=== PATIENT | male | born 1945 | race Caucasian/White ===

== ENCOUNTER 2020-05-30 12:12 | Outpatient (CLI) | payer MEDICARE, SELFPAY ==
--- NOTE | 2020-06-04 13:24 | N.ONRAD NP_ITS ---
Radiation Oncology New Patient Visit Patient: Gwyn Sharif MR#: [id number] : 1945 Age: 74 Sex: Male> Account #: Dictated by: Dr. Vladislav Elise Date of Service: 05/30/2020 Referring Physician(s) : Dr. 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 The tumor was deeply invasive-beyond subcutaneous fat, and prior to Mohs surgery, the lesion measured 1.7 x 1.3 cm. Status post Mohs resection with ultimate negative margins. Purpose of Visit: Discuss the role of adjuvant radiotherapy. History of Present Illness: The patient is a 74-year-old male with a history of a lesion on his left upper lip of 2 years duration with recent rapid progression. This lesion was biopsied by Anna Tamez PA-C on 05/01/2020 with pathology confirming crateriform squamous cell carcinoma. Anna Tamez also biopsied a right superior lateral neck lesion which revealed nodular basal cell carcinoma. He was then evaluated by Dr. Curiel who noted a 1.3 x 1.7 cm lesion in the left superior vermilion lip. On 05/15/2020 the patient underwent definitive Mohs surgery by Dr. Curiel with negative postsurgical margins. The tumor was noted to invade deeply and beyond subcutaneous fat. The patient was then recommended to be consulted with radiation oncology due to the tumor???s high risk of recurrence. In consultation today, the patient reports no wound healing issues, no pain, and no numbness/tingling. Current Medications: AmLODIPine Besylate, benztropine Mesylate, haloperidol. Allergies: Penicillin V Potassium. Medical History: - Hypertension. No history of collagen vascular disease. No previous radiation therapy. Surgical History: Appendectomy in 1965. Family History: Father is having experienced Colon Cancer. Mother is . Brother is having experienced Colon Cancer. Brother is having experienced Lung Cancer. Social History: Last screened on 05/30/2020 - Yes - but has quit for 10 years. Smoked 1.0 pack/day for 45 years (45 pack years). Last screened on 05/30/2020 - Never drank. Current Complaints / Review of Systems: . A thorough review of symptoms was completed which targeted constitutional, heme/lymph, HEENT, RECEIVER, pulmonary, cardiac, genitourinary, gastrointestinal, musculoskeletal, psychiatric and skin. Aside from that listed in the HPI, all others were negative. Physical Exam: GENERAL:??? The patient is alert, and in no acute distress. HEENT:??? Head is normocephalic. Face is symmetric. A well-healed surgical scar is appreciated in the patient's left upper lip. The surgical scar extends from the left superior vermilion of the lip and lateral to the left nasal ala. External ocular movements are intact. Sclera and conjunctivae are non erythematous. NECK:??? Trachea is midline.??? Thyroid is not enlarged by palpation.??? LYMPH NODES:??? There is no cervical or supraclavicular adenopathy bilaterally. LUNGS:??? Clear to auscultation bilaterally. Respiratory movement is unlabored. HEART:??? Regular rate and rhythm. EXTREMITIES:??? No deformities. NEUROLOGIC:??? Gait and station are normal.??? The patient is well coordinated and strength is equal bilaterally. RECEIVER:??? Cranial nerves II-XII are intact and without focal deficits.??? Psych: Affect is normal. Skin: Cursory review of the skin reveals no obvious lesions concerning for malignancy. 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 The patient was treated with definitive Mohs surgery on 05/15/2020 with ultimate negative margins. Given the size, depth of invasion, and location, the tumor has a high risk of disease recurrence. Therefore it is recommended that the patient undergo adjuvant radiation therapy for a favorable local control benefit. I recommend a total dose of 60 Gy in 30 fractions. We discussed treatment logistics, treatment side effects, prognosis, and alternatives to treatment. We will begin radiation therapy planning on 06/06/2020. Signed by: Vladislav Elise MD 06/04/2020 1:23:03 PM <<Signature on File>> Time spent with patient: CPT Code: CPT Code:
== END 2020-05-30 12:13 | disposition home or self-care (01) ==
LOC: ONCMED 12:18
PROVIDERS: PCP Family Medicine; Visit Provider Radiology Radiation Oncology
DX: C00.0 Malignant neoplasm of external upper lip (principal); Z87.891 Personal history of nicotine dependence; Z98.890 Other specified postprocedural states
CPT/HCPCS: 99205

== ENCOUNTER 2020-06-13 05:37 | Outpatient (RCR) | payer MEDICARE, SELFPAY ==
--- NOTE | 2020-06-06 | CT_ITS ---
Radiation Therapy Planning CT images; total exam DLP: 1171.10 mGy-cm MTDD
== END 2020-06-13 23:59 | disposition home or self-care (01) ==
LOC: ONCMED 05:37
PROVIDERS: PCP Family Medicine; Visit Provider Radiology Radiation Oncology
DX: C44.02 Squamous cell carcinoma of skin of lip (principal)
CPT/HCPCS: 77290; 77321; 77331; 77334; 77412

== ENCOUNTER 2020-06-14 08:42 | Outpatient (CLI) | payer MEDICARE, SELFPAY ==
--- NOTE | 2020-06-14 09:02 | CT_ITS ---
WS: [id number] CT NECK TECHNIQUE: Contrast-enhanced CT of the neck with coronal and sagittal reformatted images. CLINICAL INFORMATION: SQUAMOUS CELL CARCINOMA OF THE LEFT SUPERIOR VERMILION LIP COMPARISON: None. DLP: 2864.[address] scans at [facility] use at least one of these dose optimization techniques: automat ed exposure control; mA and/or kV adjustment per patient size (includes targeted exams where dose is matched to clinical indication); or iterative reconstruction. FINDINGS: Images in the anterior facial soft tissues and tongue base degraded due to extensive beam hardening d ental artifact. Area of left lip squamous cell carcinoma not well visualized due to beam hardening ar tifact. Parotid glands are normal in appearance. Normal submandibular glands. No cervical lymphadenopathy. No rmal posterior nasopharynx. Normal parapharyngeal fat. No evidence of supraglottic or glottic mass. N ormal piriform sinuses. Normal subglottic airway. Thyroid gland is normal. Lung apices are well aerated. Mild carotid bulb calcification. Mild spondylitic changes cervical spin e.Paranasal sinuses and mastoid air cells are well aerated. Chronic lacunar infarct right basal gangl ia. CT/CT neck w con* 82188 IMPRESSION: 1. Images in the anterior facial soft tissues and tongue base significantly de graded due to beam hardening artifact from dental hardware. 2. No cervical lymphadenopathy. 3. No evidence of supraglottic or glottic mass. Normal subglottic airway. 4. Normal salivary glands. 5. Paranasal sinuses and mastoid air cells are well aerated. 6. Normal thyroid gland.
[2020-06-14 09:53] LABS: Blood Urea Nitrogen 10 mg/dL (8-23)
[2020-06-14] MEDS: iohexol 300 mg/mL 100 mL Btl IV (10:12)
== END 2020-06-14 08:43 | disposition home or self-care (01) ==
LOC: RADWPI 08:47 → ONCMED 10:19
PROVIDERS: PCP Family Medicine; Visit Provider Radiology Radiation Oncology
DX: C44.02 Squamous cell carcinoma of skin of lip (principal)
CPT/HCPCS: 70491; 82565; 84520; Q9967

== ENCOUNTER 2020-07-11 05:34 | Outpatient (RCR) | payer MEDICARE, SELFPAY ==
--- NOTE | 2020-06-21 08:18 | ONCRAD TMN_ITS ---
Radiation Oncology Weekly Treatment Management Patient: Gwyn Sharif MR#: [id number] : 1945 Age: 74 Sex: Male Dictated by: Dr. Vladislav Elise Date of Service: 06/19/2020 Referring Physician(s) : Dr. 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 The tumor was deeply invasive-beyond subcutaneous fat, and prior to Mohs surgery, the lesion measured 1.7 x 1.3 cm. Status post Mohs resection with ultimate negative margins. Treatment Plan: 60 Gy in 30 fractions via electron therapy and a custom 5 mm daily bolus. In order to reduce risks of treatment toxicity, the patient elected not to have his regional lymphatics treated at this time. Instead, we plan to treat the primary lesion plus an adequate margin followed by surveillance. Planned surveillance includes a CT of the head/neck soft tissues every 3 to 4 months for 1 year, then every 6 months for the second year, then annually through 5 years, or as clinically appropriate. Radiotherapy to date: Course: Lip E beam 2019, Treatment Site: [id number], Ref. ID: [id number], Energy: 6E, Dose/Fx (cGy): 200, #Fx: 5 / 30, Dose Correction (cGy): 0, Total Dose (cGy): 1,000, Start Date: 06/13/2020, Elapsed Days: 6 Reason for visit: The patient is being seen today as part of their regularly scheduled weekly on treatment visits to assess for acute toxicities from radiotherapy. Interim History: The patient reports no tenderness to his lip or oral cavity. He has no complaints. Current Medications: AmLODIPine Besylate, benztropine Mesylate, haloperidol. Allergies: Penicillin V Potassium. Vital Signs: Performed on 06/19/2020 2:29 PM BMI - 23.58 kg/m2 (high), Height - 69.50 in, Weight - 162.0 lbs, Temperature - 98.1 f, Pulse - 88, Respiration - 20, O2 Sat - 98 %, Pain - 0 and BP - 118/ 82 mm(hg). Physical Exam: Appears stable, no skin erythema or desquamation. There are no ulcers or mucositis in the patient's oral cavity. Performance Status: 0 - Fully active, able to carry on all predisease activities without restrictions. (ECOG) Lab: None pending in Radiation Oncology. Imaging: Radiation therapy imaging related to accurate target localization (i.e. KV, MV and CBCT) was reviewed. Appropriate changes, if any, were made to ensure treatment accuracy. Plan: The patient is tolerating therapy reasonably well. Radiotherapy will continue as planned. CPT: 36563 Signed by: Dr. Vladislav Elise 06/21/2020 8:16:38 AM
--- NOTE | 2020-06-26 16:56 | ONCRAD TMN_ITS ---
Radiation Oncology Weekly Treatment Management Patient: Kole Pascal MR#: [id number] : 1945 Age: 74 Sex: Male Dictated by: Dr. Vladislav Elise Date of Service: 06/26/2020 Referring Physician(s) : Dr. 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 The tumor was deeply invasive-beyond subcutaneous fat, and prior to Mohs surgery, the lesion measured 1.7 x 1.3 cm. Status post Mohs resection with ultimate negative margins. Treatment Plan: 60 Gy in 30 fractions via electron therapy and a custom 5 mm daily bolus. In order to reduce risks of treatment toxicity, the patient elected not to have his regional lymphatics treated at this time. Instead, we plan to treat the primary lesion plus an adequate margin followed by surveillance. Since the regional lymphatics were excluded from primary adjuvant treatment, planned surveillance includes a CT of the head/neck soft tissues every 3 to 4 months for 1 year, then every 6 months for the second year, then annually through 5 years, or as clinically appropriate. In the event that tumor recurrence occurs, this aggressive follow up will assist in developing an early salvage plan. Radiotherapy to date: Course: Lip E beam 2019, Treatment Site: [id number], Ref. ID: [id number], Energy: 6E, Dose/Fx (cGy): 200, #Fx: , Dose Correction (cGy): 0, Total Dose (cGy): 2,000, Start Date: 06/13/2020, End Date: 06/26/2020, Elapsed Days: 13 Reason for visit: The patient is being seen today as part of their regularly scheduled weekly on treatment visits to assess for acute toxicities from radiotherapy. Interim History: The patient reports mild irritation on his upper left lip, and mild desquamation in the left oral commissure. Current Medications: AmLODIPine Besylate, benztropine Mesylate, haloperidol. Allergies: Penicillin V Potassium. Current Complaints/Review of Systems: Constitutional - Complains of fatigue. Denies lack of appetite, fever and night sweats. ENMT - Complains of dysphagia and stomatitis but has cracks at the corners of the mouth.. Denies mouth dryness. Integumentary - Has redness to the left upper lip. Vital Signs: Performed on 06/26/2020 9:27 AM BMI - 23.726 kg/m2 (high), Height - 69.50 in, Weight - 163.0 lbs, Temperature - 97.6 f, Pulse - 84, Respiration - 20, O2 Sat - 97 %, Pain - 0 and BP - 137/ 96 mm(hg)(/high). Physical Exam: Erythema within the treatment site is appreciated. Mild dry desquamation is appreciated in the left oral commissure. Performance Status: 0 - Fully active, able to carry on all predisease activities without restrictions. (ECOG) Lab: None pending in Radiation Oncology. Imaging: Radiation therapy imaging related to accurate target localization (i.e. KV, MV and CBCT) was reviewed. Appropriate changes, if any, were made to ensure treatment accuracy. Plan: The patient is tolerating therapy reasonably well. Radiotherapy will continue as planned. CPT: 90302 Signed by: Dr. Vladislav Elise 06/26/2020 4:54:03 PM
--- NOTE | 2020-07-03 17:37 | ONCRAD TMN_ITS ---
Radiation Oncology Weekly Treatment Management Patient: Kole Pascal MR#: [id number] : 1945 Age: 74 Sex: Male Dictated by: Dr. Vladislav Elise Date of Service: 07/03/2020 Referring Physician(s) : Dr. 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 The tumor was deeply invasive-beyond subcutaneous fat, and prior to Mohs surgery, the lesion measured 1.7 x 1.3 cm. Status post Mohs resection with ultimate negative margins. Treatment Plan: 60 Gy in 30 fractions via electron therapy and a custom 5 mm daily bolus. In order to reduce risks of treatment toxicity, the patient elected not to have his regional lymphatics treated at this time. Instead, we plan to treat the primary lesion plus an adequate margin followed by surveillance. Since the regional lymphatics were purposefully excluded from primary adjuvant treatment, planned surveillance includes a CT of the head/neck soft tissues every 3 to 4 months for 1 year, then every 6 months for the second year, then annually through 5 years, or as clinically appropriate. In the event that tumor recurrence occurs, this aggressive follow up will assist in developing an early salvage plan. Radiotherapy to date: Course: Lip E beam 2019, Treatment Site: [id number], Ref. ID: [id number], Energy: 6E, Dose/Fx (cGy): 200, #Fx: 15 / 30, Dose Correction (cGy): 0, Total Dose (cGy): 3,000, Start Date: 06/13/2020, Elapsed Days: 20 Reason for visit: The patient is being seen today as part of their regularly scheduled weekly on treatment visits to assess for acute toxicities from radiotherapy. Interim History: The patient reports skin irritation within the treatment area, and oral mouth sores. Current Medications: AmLODIPine Besylate, benztropine Mesylate, haloperidol. Allergies: Penicillin V Potassium. Vital Signs: Performed on 07/03/2020 8:54 AM BMI - 23.872 kg/m2 (high), Height - 69.50 in, Weight - 164.0 lbs, Temperature - 98.7 f, Pulse - 71, Respiration - 18, O2 Sat - 97 %, Pain - 0 and BP - 143/ 92 mm(hg)(high). Physical Exam: Bright skin erythema is appreciated within the treatment field, and confluent mucositis under the superior left lip is also appreciated. Performance Status: 0 - Fully active, able to carry on all predisease activities without restrictions. (ECOG) Lab: None pending in Radiation Oncology. Imaging: Radiation therapy imaging related to accurate target localization (i.e. KV, MV and CBCT) was reviewed. Appropriate changes, if any, were made to ensure treatment accuracy. Plan: The patient is tolerating therapy reasonably well. Radiotherapy will continue as planned. I have requested physics to do skin dose measurements on top of the superior left lip and underneath the superior left lip tomorrow morning. CPT: 96645 Signed by: Dr. Vladislav Elise 07/03/2020 5:36:12 PM
--- NOTE | 2020-07-11 19:04 | ONCRAD TMN_ITS ---
Radiation Oncology Weekly Treatment Management/Treatment Summary Patient: Gwyn Sharif MR#: [id number] : 1945 Age: 74 Sex: Male Dictated by: Dr. Vladislav Elise Date of Service: 07/10/2020 Referring Physician(s) : Dr. 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 The tumor was deeply invasive-beyond subcutaneous fat, and prior to Mohs surgery, the lesion measured 1.7 x 1.3 cm. Status post Mohs resection with ultimate negative margins. Treatment Plan: 60 Gy in 30 fractions via electron therapy and a custom 5 mm daily bolus. In order to reduce risks of treatment toxicity, the patient elected not to have his regional lymphatics treated at this time. Instead, we plan to treat the primary lesion plus an adequate margin followed by surveillance. Since the regional lymphatics were purposefully excluded from primary adjuvant treatment, planned surveillance includes a CT of the head/neck soft tissues every 3 to 4 months for 1 year, then every 6 months for the second year, then annually through 5 years, or as clinically appropriate. In the event that tumor recurrence occurs, this aggressive follow up will assist in developing an early salvage plan. Radiotherapy to date: Course: Lip E beam 2019, Treatment Site: [id number], Ref. ID: [id number], Energy: 6E, Dose/Fx (cGy): 200, #Fx: 20 / 30, Dose Correction (cGy): 0, Total Dose (cGy): 4,000, Start Date: 06/13/2020, End Date: 07/10/20, Elapsed Days: 27 Reason for visit: The patient is being seen today as part of their regularly scheduled weekly on treatment visits to assess for acute toxicities from radiotherapy. Interim History: The patient has significant pain associated with his lip. Current Medications: AmLODIPine Besylate, benztropine Mesylate, haloperidol, lidocaine Viscous HCl. Allergies: Penicillin V Potassium. Current Complaints/Review of Systems: Constitutional - Complains of moderate fatigue. Denies lack of appetite, fever and night sweats. ENMT - Complains of stomatitis. Denies dysphagia. Integumentary - Has desquamation to the left upper lip. Vital Signs: Performed on 07/10/2020 9:38 AM BMI - 24.134 kg/m2 (high), Height - 69.50 in, Weight - 165.8 lbs, Temperature - 98.3 f, Pulse - 85, Respiration - 18, O2 Sat - 96 %, Pain - 8 and BP - 130/ 95 mm(hg)(/high). Physical Exam: The patient has significant erythema, desquamation, and ulceration on the underside of his left upper lip. Performance Status: 0 - Fully active, able to carry on all predisease activities without restrictions. (ECOG) Lab: None pending in Radiation Oncology. Imaging: Radiation therapy imaging related to accurate target localization (i.e. KV, MV and CBCT) was reviewed. Appropriate changes, if any, were made to ensure treatment accuracy. Plan: Radiation therapy was discontinued today. I suspect that this patient's treatment toxicities are associated with back scatter associated with lead shielding to protect his oral cavity and associated poor dentition. During the course of radiation therapy, the lead shielding encased in wax was removed and a 1 cm bolus was placed underneath the lip instead. After physics consultation, physics reported that a dose of approximately 60 Gy was delivered to the underside of the lip, whereas the top side of the lip received approximately 40 Gy. It was decided to discontinue radiation treatment, attend to the patient's acute toxicities, administer pain medication, and begin previously planned surveillance. CPT: 89407 Signed by: Dr. Vladislav Elise 07/11/2020 7:02:55 PM
== END 2020-07-14 23:59 | disposition home or self-care (01) ==
LOC: ONCMED 05:34
PROVIDERS: PCP Family Medicine; Visit Provider Radiology Radiation Oncology
DX: Z51.0 Encounter for antineoplastic radiation therapy (principal); C44.02 Squamous cell carcinoma of skin of lip; K13.79 Other lesions of oral mucosa; L58.0 Acute radiodermatitis; Y84.2 Radiological procedure and radiotherapy as the cause of abnormal reaction of the patient, or of later complication, without mention of misadventure at the time of the procedure
CPT/HCPCS: 77336; 77412

== ENCOUNTER → 2020-08-07 15:11 | Outpatient (BNVA) | payer MEDICARE, SELFPAY | PROVIDERS: PCP Family Medicine; Referring Provider Family Medicine; Visit Provider Orthopaedic Surgery | DX: M17.0 Bilateral primary osteoarthritis of knee (principal); M25.562 Pain in left knee; M25.561 Pain in right knee | CPT/HCPCS: 73560; 73565 ==

== ENCOUNTER → 2020-09-19 09:12 | Outpatient (BNVA) | payer MEDICARE, SELFPAY | PROVIDERS: PCP Family Medicine; Visit Provider Orthopaedic Surgery | DX: M17.0 Bilateral primary osteoarthritis of knee (principal) | CPT/HCPCS: 87635 ==

== ENCOUNTER → 2020-09-24 11:37 | Day surgery (SDC) | payer MEDICARE, SELFPAY ==
[2020-09-10 10:56] VITALS: BMI 24.3
--- NOTE | 2020-09-24 11:46 | W.PM.OPSFHP ---
Same Day Surgery H&P Indication for Procedure/HPI DATE OF PROCEDURE: September 24, 2020 CHIEF COMPLAINT/INDICATIONFOR SURGICAL PROCEDURE: 75-year-old male with osteoarthritis of both knees more symptomatic on the right. He has failed medications: Ibuprofen, Ultram and failed corticosteroid injections. He has significant pain is here for elective right total knee arthroplasty PREOP DIAGNOSIS: Osteoarthritis right knee PLANNED PROCEDRUE: Operation Date: 09/24/20 12:10 Proposed Procedures p Right Total Knee Arthroplasty 64245 M17.0(Right) - Clifford Zamudio MD Medications/Allergies* Home Medications Medication Instructions Recorded Confirmed Type amlodipine 5 mg tablet 5 mg PO DAILY 08/07/20 09/10/20 History haloperidol 2 mg tablet 2 mg PO DAILY 08/07/20 09/10/20 History tramadol 50 mg tablet 50 mg PO TID PRN 08/07/20 09/10/20 History benztropine [Cogentin] 2 mg PO DAILY 09/10/20 09/10/20 History Allergies/Adverse Reactions Allergy/AdvReac Type Severity Reaction Status Date / Time Penicillins Allergy Unknown Verified 09/10/20 10:51 Pertinent History/Comorbid Conditions* Family History (Updated 08/07/20 @ 15:29 by Serena Jones LPN) Father Mother Cancer Father stomach Hypertension Mother Social History Smoking and tobacco status: former smoker Quit status (tobacco): has quit using tobacco Alcohol intake: former Desire information about alcohol rehabilitation?: No Counseling given: No Pertinent Exam Findings alert, oriented x 3, clear to auscultation bilaterally, regular rate & rhythm and operative site marked Recommendations Surgery/Procedure today Coding Level of Care Code Acute 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
[2020-09-24 11:50] VITALS: BP 141/101; PULSE 126; RESP 20; TEMP 36.4; O2SAT 97
--- NOTE | 2020-09-24 11:50 | ECG_ITS ---
[facility] Test Date: 2020-09-24 Pat Name: Gwyn Sharif Department: Room: Gender: Male Student Services Coordinator: : 1945 Requested By: Hira Cárdenas Order Number: [id number] Ashvin MD: Rosetta Montesinos M.D. Measurements Intervals [place] Rate: 106 P: IN: QRS: 28 QRSD: 80 T: 46 QT: 328 QTc: 437 Interpretive Statements ATRIAL FIBRILLATION WITH RAPID VENTRICULAR RESPONSE ABNORMAL RHYTHM ECG WARNING: DATA QUALITY MAY AFFECT INTERPRETATION No previous ECG available for comparison Electronically Signed On 09-24-2020 17:30:25 CHEMICAL ECONOMIST by Rosetta Montesinos M.D. [id number]
--- NOTE | 2020-09-24 12:41 | P.ANESUD_ITS ---
Pre-Anesthetic Update Pre-Anesthetic Assessment: Date of Surgery/Procedure: 09/24/20 Preop Arminda gnosis: Osteoarthritis right knee Proposed Procedure: Operation Date: 09/24/20 12:10 Proposed Procedures p Right Total Knee Arthroplasty 37486 M17.0(Right) - Clifford Zamudio MD Any changes to Pre-Anesthetic Assessment?: Yes Exam: Pre-Anes Outpt Exam: alert, oriented x 3 and clear to auscultation bilaterally Additional Exam Findings (including area of procedure): New onset a.fib (HR 106), surgeon cancelled case for further evaluation. Cardiac Studies: No Data to Display
--- NOTE | 2020-09-24 13:16 | PC.NURSE ---
[id number] Pt arrived for surgery, vital signs taken, and assessment done. B/P 141/101, HR 126, and HR irregular. Pt states that he only has high blood pressure, and had not been diagnosed with A-fib before. EKG ordered and Dr Treviño, and Dr Zamudio notified. After discussion and deliberation, surgery was cancelled. Appointment made with Dr Leonor Courtney (pts , Dr Ga did not have an opening) for tomorrow at 1100. Pt to have a cardiac workup and then reschedule surgery.
== END ==
PROVIDERS: PCP Family Medicine; Visit Provider Orthopaedic Surgery
DX: M17.0 Bilateral primary osteoarthritis of knee (principal); Z53.9 Procedure and treatment not carried out, unspecified reason; Z87.891 Personal history of nicotine dependence
CPT/HCPCS: 12345; 93005

== ENCOUNTER 2020-10-19 07:48 | Outpatient (CLI) | payer MEDICARE, SELFPAY ==
--- NOTE | 2020-10-19 08:29 | ONCRAD EPV_ITS ---
Radiation Oncology Follow-Up Note Patient Name: Gwyn Sharif Date of : 1945 Date of Service: 10/19/2020 Attending Physician: River Elizabeth M.D. Gwyn Sharif returned to my office this morning for a routinely scheduled follow-up appointment. He completed post-operative radiotherapy in June 2020 for the management of his clinical stage III (T3 N0) squamous cell carcinoma of the left superior vermilion border of the lip. Radiotherapy was administered between the dates of June 13, 2020 through July 10, 2020. A prescribed dose of 40 Gy was delivered in 20 fractions. Radiation therapy was aborted secondary to dermatitis. On review of systems, the patient denied any skin complaints related to his treatment. On physical examination, slight hypopigmentation of the lip was present I did not palpate any cervical adenopathy.. In summary, the patient returned for a routine post-radiotherapy follow-up. The patient has no residual adverse effects from treatment. He will continue follow-up with his rod pointer as scheduled. Signed by: Dr. River Elizabeth 10/19/2020 8:28:08 AM
== END 2020-10-19 07:49 | disposition home or self-care (01) ==
LOC: ONCMED 07:51
PROVIDERS: PCP Family Medicine; Visit Provider Radiology Radiation Oncology
DX: C44.02 Squamous cell carcinoma of skin of lip (principal); Z92.3 Personal history of irradiation
CPT/HCPCS: 99213

== ENCOUNTER 2020-11-06 09:31 | Outpatient (CLI) | payer MEDICARE, SELFPAY ==
--- NOTE | 2020-11-06 09:45 | USCV_ITS ---
Gwyn Sharif Age: 75 Gender: M : 1945 Exam Date: 11/06/2020 09:54 Ordering Phys: Abdiaziz Martin MD ([email or web address]) Technologist: Elyssa Aden [place] [facility] [place] CHEST PAIN WITH AFIB BP: / HR: 81 Rhythm: Sinus Technical Quality: AFIB MEASUREMENTS (Male / Female) Normal Values 2D ECHO LV Diastolic Diameter PLAX 3.8 cm 4.2 - 5.9 / 3.9 - 5.3 cm LV Systolic Diameter PLAX 3.0 cm LV Chamber Size 4.1 cm IVS Diastolic Thickness 1.3 cm 0.6 - 1.0 / 0.6 - 0.9 cm IVS Systolic Thickness 1.4 cm LVPW Diastolic Thickness 1.6 cm 0.6 - 1.0 / 0.6 - 0.9 cm LVPW Systolic Thickness 1.3 cm RV Chamber Size 3.0 cm LVOT Diameter 2.0 cm LV Ejection Fraction 2D Teich 42.3 % LV Ejection Fraction MOD 2C 58.8 % LV Ejection Fraction 2C AL 55.6 % LA Diameter 3.9 cm LA Width 3.5 cm LA Height 4.5 cm RA Width 2.5 cm RA Height 3.7 cm Aorta at Sinotubular Diameter 3.1 cm M-MODE LV Diastolic Diameter MM 5.3 cm 4.2 - 5.9 / 3.9 - 5.3 cm LV Systolic Diameter MM 4.4 cm LV Ejection Fraction MM Teich 34.6 % IVS Diastolic Thickness MM 1.1 cm 0.6 - 1.0 / 0.6 - 0.9 cm IVS Systolic Thickness MM 1.3 cm LVPW Diastolic Thickness MM 1.2 cm 0.6 - 1.0 / 0.6 - 0.9 cm LVPW Systolic Thickness MM 1.9 cm RV Diastolic Diameter MM 1.9 cm Aortic Annulus Diameter 3.4 cm LA Ao Ratio MM 1.4 DOPPLER AV Peak Velocity 90.0 cm/s LVOT Peak Velocity 54.0 cm/s AV Area Cont Eq vti 2.2 cm squared AV Area Cont Eq pk 2.0 cm squared MV Area PHT 4.0 cm squared MV E' Velocity 40.0 cm/s Mitral E to MV E' Ratio 5.0 Mitral E to LV E' Lateral Ratio 4.5 Mitral E to LV E' Septal Ratio 5.5 TR Peak Velocity 229.9 cm/s TR Peak Gradient 21.1 mmHg TR Mean Velocity 174.3 cm/s TR Mean Gradient 13.6 mmHg TR Velocity Time Integral 57.5 cm TV Peak E Velocity 63.0 cm/s Right Atrial Pressure 3.0 mmHg Pulmonary Artery Systolic Pressu 24.1 mmHg PV Peak Velocity 44.0 cm/s RV Acceleration Time 0.2 s RV Ejection Time 0.3 s RV AcT/ET 0.5 FINDINGS Left Ventricle Normal left ventricular size and systolic function, EF 45 to 50%. Mild diffuse hypokinesia left ventricle.mild left ventricular hypertrophy. Right Ventricle Normal right ventricular size and systolic function. Right Atrium Mildly increased right atrial size. Left Atrium Mildly increased left atrial size. Mitral Valve Thickened mitral valve. Moderate-severe mitral valve regurgitation. Aortic Valve Thickened aortic valve. Tricuspid Valve Mild tricuspid valve regurgitation. Pulmonic Valve Pulmonic valve not well visualized. Pericardium No pericardial effusion. Aorta Normal aortic annulus size. CONCLUSIONS Normal left ventricular size and systolic function, EF 45 to 50%. Mild diffuse hypokinesia left ventricle.mild left ventricular hypertrophy. Mild biatrial enlargement. Thickened aortic and mitral valves. Moderate-severe mitral valve regurgitation. Mild tricuspid valve regurgitation. There is no pericardial effusion. There are no intracardiac masses. No previous study is available for comparison. Dr Abdiaziz Martin MD [facility] (Electronically Signed) Final Date: 06 November 2020 18:48 S
[2020-11-07 08:34] VITALS: BMI 23.6
--- NOTE | 2020-11-07 08:35 | ECG_ITS ---
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 Interpretive Statements NAME OF STUDY: LEXISCAN SESTAMIBI STRESS TEST INDICATION: Sob, PROCEDURE: At the baseline, the EKG revealed atrial fibrillation with controlled ventricular response rate of [address]-T changes. The baseline blood pressure was 140/102 mm Hg with a heart rate of 98 beats/min. Lexiscan was infused over a period of 20 seconds. A total of 0.4 milligrams of Lexiscan was infused. The stress phase was continued for a total of 5 minutes. Heart rate at the end of the stress phase was 103 with a blood pressure 120/84. The EKG at the peak infusion revealed no significant changes. Sestamibi was injected 20 seconds after the Lexiscan infusion. Blood pressure at the end of the recovery phase was 122/85 with a heart rate of 102 per minute. CONCLUSION: 1. No significant EKG changes with the LexiScan infusion 2. No LexiScan induced chest pain or cardiac arrhythmia 3. Normal blood pressure and heart rate response 4. Sestamibi/sestamibi perfusion scan pending; see separate report. Electronically Signed On 11-08-2020 10:16:03 CIRCLE BEVELER by Abdiaziz Martin M.D. [id number]
--- NOTE | 2020-11-07 08:35 | NMCV_ITS ---
NM mary perf SPECT r/s* [id number] Gwyn Sharif Age: 75 Gender: M : 1945 Exam Date: 11/07/2020 08:35 Ordering Phys: Abdiaziz Martin MD ([email or web address]) Technologist: JAQUAN Wilhelm Exam Location: [facility] Indications: SOB STRESS TEST Please see separate stress test report in [facility] for full findings IMAGE PROTOCOL Rest/Stress 1 Lexiscan Day Radiopharmaceutical Dose (mCi) Administration Site Administered by Rest: Tc-99m 10.7 IV JAQUAN Wilhelm Sestamibi Stress:Tc-99m 32.3 IV JAQUAN Ray Sestamibi Rest: 07-Nov-2020 60 Discovery 630 Stress: 07-Nov-2020 30 Discovery 630 0.4mg Lexiscan. Images obtained in supine and prone position. SPECT RESULTS Technical Quality: Excellent Raw Data Analysis: Normal Image Corrections: No attenuation or motion correction applied Summed Stress Score: 0 Summed Rest Score: 0 Summed Difference Score: 0 PERFUSION FINDINGS Small area of slightly decreases uptake in the inferolateral region, with no significant reversibility. FUNCTIONAL RESULTS (calculated via Gated SPECT) Stress Image LV EF (%): 57 Stress EDV (mL):110 TID: 1.18 Stress ESV (mL):47 FUNCTIONAL FINDINGS: Segmental wall motion analysis revealing no gross wall motion abnormalities. IMPRESSIONS 1. Myocardial perfusion may revealing a small area of slightly decreased persistent tracer uptake in the inferolateral wall region, suggestive of myocardial scarring versus attenuation artifact. 2. Normal LV ejection fraction 57%. 3. LV wall motion analysis revealing no gross wall motion normalities. 4. Mildly dilated LV cavity with an end-systolic volume of 47 mL The slightly elevated transient ischemic dilatation ratio, may suggest endocardial ischemia. However the positive predictive value of this finding is limited. Clinical correlation is recommended Dr Abdiaziz Martin MD [facility] (Electronically Signed) Final Date: 07 November 2020 14:24 S
[2020-11-07] MEDS: regadenoson 0.4 Mg/5 ml Syringe IVP (10:10)
[2020-11-07 10:22] VITALS: BP 122/85; PULSE 96
== END 2020-11-06 09:32 | disposition home or self-care (01) ==
PROVIDERS: PCP Family Medicine; Visit Provider Internal Medicine Cardiovascular Disease
DX: I48.91 Unspecified atrial fibrillation (principal); R06.02 Shortness of breath; R07.89 Other chest pain; I08.3 Combined rheumatic disorders of mitral, aortic and tricuspid valves
CPT/HCPCS: 93306

== ENCOUNTER 2020-11-07 10:48 | Outpatient (CLI) | payer MEDICARE, SELFPAY ==
--- NOTE | 2020-11-07 | NMCV_ITS ---
NM mary perf SPECT r/s* [id number] Gwyn Sharif Age: 75 Gender: M : 1945 Exam Date: 11/07/2020 08:35 Ordering Phys: Abdiaziz Martin MD Technologist: JAQUAN Wilhelm Exam Location: [facility] Indications: SOB STRESS TEST Please see separate stress test report in [facility] for full findings IMAGE PROTOCOL Rest/Stress 1 Lexiscan Day Radiopharmaceutical Dose (mCi) Administration Site Administered by Rest: Tc-99m 10.7 IV JAQUAN Wilhelm Sestamibi Stress:Tc-99m 32.3 IV JAQUAN Ray Sestamibi Rest: 07-Nov-2020 60 Discovery 630 Stress: 07-Nov-2020 30 Discovery 630 0.4mg Lexiscan. Images obtained in supine and prone position. SPECT RESULTS Technical Quality: Excellent Raw Data Analysis: Normal Image Corrections: No attenuation or motion correction applied Summed Stress Score: 0 Summed Rest Score: 0 Summed Difference Score: 0 PERFUSION FINDINGS Small area of slightly decreases uptake in the inferolateral region, with no significant reversibility. FUNCTIONAL RESULTS (calculated via Gated SPECT) Stress Image LV EF (%): 57 Stress EDV (mL):110 TID: 1.18 Stress ESV (mL):47 FUNCTIONAL FINDINGS: Segmental wall motion analysis revealing no gross wall motion abnormalities. IMPRESSIONS 1. Myocardial perfusion may revealing a small area of slightly decreased persistent tracer uptake in the inferolateral wall region, suggestive of myocardial scarring versus attenuation artifact. 2. Normal LV ejection fraction 57%. 3. LV wall motion analysis revealing no gross wall motion normalities. 4. Mildly dilated LV cavity with an end-systolic volume of 47 mL The slightly elevated transient ischemic dilatation ratio, may suggest endocardial ischemia. However the positive predictive value of this finding is limited. Clinical correlation is recommended Dr Abdiaziz Martin MD [facility] (Electronically Signed) Final Date: 07 November 2020 14:24 C MTDD
--- NOTE | 2020-11-07 | NMCV_ITS ---
NM mary perf SPECT r/s* [id number] Gwyn Sharif Age: 75 Gender: M : 1945 Exam Date: 11/07/2020 08:35 Ordering Phys: Abdiaziz Martin MD Technologist: JAQUAN Wilhelm Exam Location: [facility] Indications: SOB STRESS TEST Please see separate stress test report in [facility] for full findings IMAGE PROTOCOL Rest/Stress 1 Lexiscan Day Radiopharmaceutical Dose (mCi) Administration Site Administered by Rest: Tc-99m 10.7 IV JAQUAN Wilhelm Sestamibi Stress:Tc-99m 32.3 IV JAQUAN Ray Sestamibi Rest: 07-Nov-2020 60 Discovery 630 Stress: 07-Nov-2020 30 Discovery 630 0.4mg Lexiscan. Images obtained in supine and prone position. SPECT RESULTS Technical Quality: Uninterpretable Raw Data Analysis: Normal Image Corrections: No attenuation or motion correction applied Summed Stress Score: 0 Summed Rest Score: 0 Summed Difference Score: 0 PERFUSION FINDINGS Small area of slightly decreases uptake in the inferolateral region, with no significant reversibility. FUNCTIONAL RESULTS (calculated via Gated SPECT) Stress Image LV EF (%): 57 Stress EDV (mL):110 TID: 1.18 Stress ESV (mL):47 FUNCTIONAL FINDINGS: Segmental wall motion analysis revealing no gross wall motion abnormalities. IMPRESSIONS 1. Myocardial perfusion may revealing a small area of slightly decreased persistent tracer uptake in the inferolateral wall region, suggestive of myocardial scarring versus attenuation artifact. 2. Normal LV ejection fraction 57%. 3. LV wall motion analysis revealing no gross wall motion normalities. 4. Mildly dilated LV cavity with an end-systolic volume of 47 mL The slightly elevated transient ischemic dilatation ratio, may suggest endocardial ischemia. However the positive predictive value of this finding is limited. Clinical correlation is recommended Dr Abdiaziz Martin MD [facility] (Electronically Signed) Final Date: 07 November 2020 14:24 MTDD
== END 2020-11-07 10:49 | disposition home or self-care (01) ==
LOC: CDL 11-08 10:49
PROVIDERS: PCP Family Medicine; Visit Provider Internal Medicine Cardiovascular Disease
DX: R06.02 Shortness of breath (principal); I48.91 Unspecified atrial fibrillation
CPT/HCPCS: 78452; A9500; J2785

== ENCOUNTER → 2020-11-14 14:29 | Outpatient (BNVA) | payer MEDICARE, SELFPAY | PROVIDERS: PCP Family Medicine; Visit Provider Orthopaedic Surgery | DX: Z01.812 Encounter for preprocedural laboratory examination (principal); Z20.822 Contact with and (suspected) exposure to COVID-19 | CPT/HCPCS: 87635 ==

== ENCOUNTER 2020-11-19 12:24 | Observation (INO) | payer MEDICARE, SELFPAY ==
[2020-11-14 13:10] VITALS: BMI 23.6
--- NOTE | 2020-11-14 13:31 | ANES.PREANE2 ---
Pre-Anesthetic Assessment Pre-Anesthetic Assessment: Height/Weight: Height 1.78 m Weight 74.843 kg Preop Diagnosis: Osteoarthritis right knee Proposed Procedure: Operation Date: 11/19/20 12:35 Proposed Procedures p Total Knee Arthroplasty 23217 M17.0(Not Applicable) - Clifford Zamudio MD Familial anesthetic complications: None Social: Social History: No alcohol and No tobacco Exam: Pre-Anes Outpt Exam: alert, oriented x 3, clear to auscultation bilaterally and regular rate & rhythm Airway: Cervical ROM: WNL MP: 1 Dentition: Partials CV/HEM: CV/HEM: Afib and HTN Anesthetic Plan: ASA status: 3 Anesthesia: MAC and Regional (specify below) (spinal and adductor) Other: still ok w/ spinal Risk of > 500 ml blood loss (7ml/kg in children): No PFSH Anesthesia PFSH: Medical History History of 2019 novel coronavirus disease (COVID-19) History of hypertension Hx of atrial flutter Hx of schizophrenia Hypertension Surgical History History of tonsillectomy and adenoidectomy Hx of total knee replacement Family History Mother Hypertension Father Cancer stomach Social History Smoking and tobacco status: former smoker Quit status (tobacco): has quit using tobacco Alcohol intake: former Desire information about alcohol rehabilitation?: No Counseling given: No Data Anesthesia Cardiac Studies: No Data to Display
[2020-11-19] VITALS (18 sets, daily range): BP systolic 90–132; BP diastolic 58–90; PULSE 55–98; RESP 14–20; TEMP 35.9–37.2; O2SAT 94–99
[2020-11-19] MEDS: sodium chloride 0.9% 1,000 ML 30 ML IV (09:08)
[2020-11-19] MEDS: gabapentin 300 mg Capsule PO ×2 (09:09→17:32)
[2020-11-19] MEDS: oxyCODONE 20 mg ER (12 HR) Tablet PO (09:09)
--- NOTE | 2020-11-19 09:09 | W.PM.OPSFHP ---
Same Day Surgery H&P Indication for Procedure/HPI DATE OF PROCEDURE: November 19, 2020 CHIEF COMPLAINT/INDICATIONFOR SURGICAL PROCEDURE: Osteoarthritis right knee PREOP DIAGNOSIS: Osteoarthritis right knee PLANNED PROCEDRUE: Operation Date: 11/19/20 09:30 Proposed Procedures p Total Knee Arthroplasty 62103 M17.0(Right) - Clifford Zamudio MD 75-year-old male with osteoarthritis of both knees more symptomatic on the right. He has failed medications: Ibuprofen, Ultram and failed corticosteroid injections. He has significant pain is here for elective right total knee arthroplasty ROS Patient has a history of atrial fibrillation. Has been cleared by cardiology Medications/Allergies* Home Medications Medication Instructions Recorded Confirmed Type amlodipine 5 mg tablet 5 mg PO DAILY 08/07/20 11/19/20 History haloperidol 2 mg tablet 2 mg PO DAILY 08/07/20 11/19/20 History benztropine [Cogentin] 2 mg PO DAILY 09/10/20 11/19/20 History ibuprofen 600 mg PO Q8H PRN 09/24/20 11/19/20 History saw palmetto 450 mg capsule 450 mg PO DAILY cap 10/12/20 11/19/20 History turmeric root extract 500 mg 1,500 mg PO DAILY cap 10/12/20 11/19/20 History capsule vitamins-lipotropics 200 mg-100 mg 1 tab PO DAILY tab 10/12/20 11/19/20 History tablet aspirin 325 mg PO DAILY 11/14/20 11/14/20 History Allergies/Adverse Reactions Allergy/AdvReac Type Severity Reaction Status Date / Time Penicillins Allergy Unknown Verified 10/15/20 09:24 Current Medications: Generic Name Dose Route Start Last Admin Trade Name Freq PRN Reason Stop Dose Admin Sodium Chloride 1,000 mls @ 30 mls/hr 11/19/20 08:45 11/19/20 09:08 Sodium Chloride 0.9% IV 11/20/20 08:44 30 mls/hr .Q24H ROSALINDA Administration Pertinent History/Comorbid Conditions* Medical History (Updated 10/15/20 @ 16:53 by Abdiaziz Martin MD) History of 2019 novel coronavirus disease (COVID-19) History of hypertension Hx of atrial flutter Hx of schizophrenia Hypertension Surgical History (Updated 10/15/20 @ 15:30 by Abdiaziz Martin MD) History of tonsillectomy and adenoidectomy Hx of total knee replacement Family History (Updated 08/07/20 @ 15:29 by Serena Jones LPN) Father Mother Cancer Father stomach Hypertension Mother Social History Smoking and tobacco status: former smoker Quit status (tobacco): has quit using tobacco Alcohol intake: former Desire information about alcohol rehabilitation?: No Counseling given: No Pertinent Exam Findings alert, oriented x 3, clear to auscultation bilaterally, regular rate & rhythm, operative site marked and procedure specific exam findings Recommendations Surgery/Procedure today Coding Level of Care Code Acute Diploma Pharmacy Technician for Yaima Jmi
[2020-11-19] MEDS: CELEcoxib 200 mg Capsule 400 MG PO (09:10)
[2020-11-19] MEDS: acetaminophen 500 mg Tablet 1000 MG PO ×2 (09:11→17:32)
--- NOTE | 2020-11-19 09:15 | P.ANESUD_ITS ---
Pre-Anesthetic Update Pre-Anesthetic Assessment: Date of Surgery/Procedure: 11/19/20 Preop Arminda gnosis: Osteoarthritis right knee Proposed Procedure: Operation Date: 11/19/20 09:30 Proposed Procedures p Total Knee Arthroplasty 88725 M17.0(Right) - Clifford Zamudio MD Any changes to Pre-Anesthetic Assessment?: No Last Intake: Intake Last Liquid Date 11/19/20 Last Liquid Time 06:00 Last Solid Date 11/18/20 Last Solid Time 18:00 Vitals: Temperature 97.9 F 11/19/20 08:24 Temperature Source Temporal Artery S can 11/19/20 08:24 Pulse Rate 88 11/19/20 08:24 Pulse Rhythm 11/19/20 08:42 Pulse Strength 3+ Normal 11/19/20 08:42 Respiratory Rate 16 11/19/20 09:09 Blood Pressure 132/90 11/19/20 08:24 Blood Pressure Millie n 104 11/19/20 08:24 Pulse Oximetry 96 11/19/20 08:24 Oxygen Delivery Me thod 11/19/20 08:42 Exam: Pre-Anes Outpt Exam: alert, oriented x 3 and clear to auscultation bilaterally Cardiac Studies: No Data to Display
[2020-11-19] MEDS: tranexamic acid 1,000 mg/10mL SDV 1000 MG IRRIGATION (10:27)
[2020-11-19] MEDS: ketorolac 30 mg/mL INJ IM (10:28)
[2020-11-19] MEDS: EPINEPHrine 1 mg/mL INJ XX (10:28)
[2020-11-19 11:15] LABS: Hematocrit 34.7 % (42.0-52.0); Hemoglobin 11.1 g/dL (11.7-16.6)
--- NOTE | 2020-11-19 11:21 | PM.OP ---
Operative Report Date of procedure: November 19, 2020 Pre-op Diagnosis: Osteoarthritis right knee Post-op diagnosis: same Post-op Findings: Same Procedure Done: Right total knee arthroplasty Implants: Vijay total knee arthroplasty components were used includin) Size 6 triathalon cruciate retaining femoral component 2) Size 5 Tritanium tibial component 3) 35 mm /10 mm thickness Tritanium asymetric patella 4) Size 5/16mm thickness CS tibial bearing insert Pathology: none sent Surgeon: Clifford Zamudio Anesthesia: Nerve Block (Spinal, adductor canal) Estimated blood loss (mL): 750 Findings: The patient had severe tricompartmental degenerative changes of his knee with pronounced medial tibial wear and severe patellofemoral wear. He had resting varus deformity Disposition: PACU Procedure: The patient was taken to the operating room. Patient was given 1 g of tranexamic acid . The above anesthesia provided by the anesthesia service. A timeout was performed. The patient was prepped and draped in the usual fashion with the lower extremity exposed. A anterior incision was made, midline, from a point proximal to the patella to the distal tibial tubercle. The knee was entered through a medial parapatellar approach. The patella could be displaced laterally and the knee flexed. The patellar fat pad was resected to provide better visibility. Retractors were placed medially and laterally adjacent to the tibial plateau. The femoral canal was drilled in line with the longitudinal axis of the femur. Intramedullary femoral guide for used to make a distal femoral cut in 5 degrees of valgus, resecting 8 mm from the more prominent condyle. The femoral measuring guide was then placed over the distal femur. Rotation was verified checking the relationship of the guide to the condyle and the trochlear groove. The femur was measured and cut for the desired femoral component. Next the extra medullary tibial guide was placed in alignment with the longitudinal axis of the tibia. The cutting guides were set to remove a minimal 2 mm from the medial tibial plateau appear. The proximal tibia was then cut. After removal of the tibia bleeding was identified from the intercondylar notch. Access could be obtained with distraction on the knee and appeared to be a very prominent middle genicular branch. The branch was sutured with 3-0 silk stick ties. Additional hemostasis provided posteriorly with electrocautery. A trial reduction with the femur tibial baseplate and polyethylene was done, assuring that the knee was stable throughout full motion. Ligament balancing involve the release of the deep medial collateral ligament and removal of prominent remaining medial osteophytes..The tibia was prepared for the tibial baseplate. The posterior capsule was then inspected. No additional bleeding was seen. The area was packed with a TXA soaked sponge for the patellar preparation. Patellar thickness was then measured. The patella was cut removing articular cartilage and prepared for appropriate size patellar button. All surfaces were cleaned with pulsatile lavage. The femur tibia and patella were then press-fit into place. The posterior capsule and collateral ligaments were then injected with a solution of 100 mL of 0.2% ropivacaine, 1 mL of a 1:1000 epinephrine solution, and 30 mg of Toradol. Posterior capsule was again inspected and found to be free of bleeding. Final polyethylene component was then snapped into place into the tibia. 2 grams of tranexamic acid were applied to the wound. The tourniquet was deflated. The tranxanemic acid was left contact with the knee for 5 minutes before the knee was irrigated with saline. The extensor retinaculum was closed with a running 1 Stratafix.. The subcutaneous tissues were closed with 2-0 Vicryl and the skin was closed with a running 3-0 Stratafix. The wound was covered with a Dermabond Prinio dressing. It was covered with 4xrs and a compressive Tubigauae was applied. The patient was taken to recovery room in stable condition.
--- NOTE | 2020-11-19 11:36 | XRR_ITS ---
PROCEDURE INFORMATION: Exam: XR Right Knee Exam date and time: 11/19/2020 11:37 AM Age: 75 years old Clinical indication: Device placement; Joint replacement hardware; Prior surgery; Surgery date: Post-operative (0-2 days); Surgery type: Right total knee arthroplasty TECHNIQUE: Imaging protocol: XR Right knee. Views: Frontal and cross-table lateral, 2 views. COMPARISON: No relevant prior studies available. FINDINGS: Tubes, catheters and devices: The patellar, femoral, and tibial prosthetic joint components appear to be in good position and alignment. Bones/joints: The patient is status post total knee replacement. There is no fracture identified. There is no joint effusion identified (postoperative gas is present in the joint). Soft tissues: Operative site emphysema is present. XR/XR knee RT 1-2V 12823 IMPRESSION: Satisfactory appearance status post total knee replacement.
--- NOTE | 2020-11-19 12:20 | ANES.PROC ---
Anesthesia Procedures Procedure/Date: 11/19/20 Nerve Block ^: Nerve Block 1: Main Anesthesia: spinal anesthesia block Time Out Performed: Yes Consent: requested by attending/covering physician, from patient, risks and benefits reviewed and patient agrees to proceed Nerve block location: adductor canal (right) Anesthesia monitors applied: pulse oximetry, EKG and BP cuff Nerve block position: supine Anesthetic Used: ropivicaine 0.5% Amount of anesthesia used (mL): 20 Nerve Stimulator Used?: No Interscalene/Femoral BLK: 4 stimuplex 21 g needle used for position and inplane approach Injection: neg aspiration of heme Patient Tolerated Procedure: well Complications: none
--- NOTE | 2020-11-19 12:26 | ANE.PACU2 ---
Inpatient post-anesthesia follow up: Airway intact: Yes Vital signs: Temperature 97.2 F Pulse Rate 84 Respiratory Rate 18 Blood Pressure 95/70 Pulse Oximetry 97 Oxygen Delivery Me thod Room Air Oxygen Flow Rate 6 Fraction of Inspir ed Oxygen Hydration adequate: Yes Nausea and vomiting: No Pain level: 1 Mental status: Baseline
[2020-11-19] MEDS: sodium chloride 0.9% 1,000 ML 100 ML IV ×2 (14:33→23:32)
[2020-11-19] MEDS: pantoprazole DR 40 mg Tablet PO (17:32)
[2020-11-19] MEDS: sennosides-docusate Tablet 2 TAB PO (17:32)
--- NOTE | 2020-11-19 19:03 | PC.NURSE ---
Bedside report given to OMAR Ferrera and OMAR Aguero.
--- NOTE | 2020-11-19 20:07 | PC.NURSE ---
Patient's called. Updated her on his status. Encouraged her to call back if she had any concerns or wanted updates.
[2020-11-19] MEDS: CELEcoxib 200 mg Capsule PO (20:49)
[2020-11-20] MEDS: acetaminophen 500 mg Tablet 1000 MG PO ×2 (01:18→08:37)
[2020-11-20 04:00] VITALS: BP 128/81; PULSE 72; RESP 17; TEMP 36.5; O2SAT 98
[2020-11-20 04:10] LABS: Hemoglobin 11.1 g/dL (11.7-16.6)
[2020-11-20 07:04] VITALS: BP 103/56; PULSE 90; RESP 16; TEMP 36.4; O2SAT 92
[2020-11-20] MEDS: benztropine 1 mg Tablet 2 MG PO (08:38)
[2020-11-20] MEDS: haloperidol 1 mg Tablet 2 MG PO (08:38)
[2020-11-20] MEDS: CELEcoxib 200 mg Capsule PO (08:38)
[2020-11-20] MEDS: aspirin 325 mg Tablet PO (08:38)
[2020-11-20] MEDS: sennosides-docusate Tablet 2 TAB PO (08:39)
[2020-11-20] MEDS: pantoprazole DR 40 mg Tablet PO (08:39)
[2020-11-20 11:16] VITALS: RESP 18
[2020-11-20] MEDS: oxyCODONE 5 mg IR Tab/Cap PO (11:16)
--- NOTE | 2020-11-20 11:22 | PC.CHAP ---
Pastoral Care Encounter/Spiritual Assessment Type of Contact [] Declined top dyeing machine tender visit [] Patient/Family/Request visit [] Outpatient visit [] Follow-up visit [] Physician referral [] Code/Alert [x] Routine visit [] Staff referral [] Actively dying [] Patient sleeping [] Family support [] [] Out of room [] Palliative care [] [] Receiving care in room [] Pre-surgical visit [] Trauma [] Long length of stay [] ICU visit [] Other: Relational/Emotional Strength [] Patient feels connected with others/family/visitors/staff [] Distress [] Loneliness/isolation [] Abandonment Spirituality of Patient [x] Person of Melania [] Attends Scientology of their Melania [x] Believes in Prayer [] Reads Bible or Nondenominational materials [] There are Spiritual issues to be addressed Instructional Support Technician Interventions [x] Prayer [] Active listening [] Non-anxious presence [] Spiritual/emotional support [] Crisis/trauma care [] Spiritual counseling [] Bereavement support [] Provided bereavement packet [] Provided Bible/devotional materials [] Provided toy/stuffed animal, coloring book to patient or family member [] Provided Communion [] Anointing/[place] [] Salvation [] Completed spiritual assessment [] Other: Impact on Illness or Injury [] Angry [] Fearful [] Anxious [] Often cries [] Exhaustion [] Unable to work [] Unable to attend uatsdin [] Unable to walk/stand [] Unable to read [] Unable to drive [] Unable to eat/drink [] Unable to sleep [] Unable to be with family [] Patient intubated [] Other: Summary Happy, yet quiet. A gentle soul wanting to get well. Time spent with patient 2minutes
[2020-11-20 11:27] VITALS: BP 123/79; PULSE 107; RESP 16; TEMP 36.5; O2SAT 94
--- NOTE | 2020-11-20 12:59 | P.DS_ITS ---
Discharge Providers Date of Admission: 11/19/20 12:24 Date of Discharge: November 20, 2020 Attending Provider at Admission: Clifford Zamudio MD Attending Provider at Discharge: Clifford Zamudio MD Primary Care Provider: Landon Ga Diagnoses at Discharge Discharge Diagnosis (1) Osteoarthritis of left knee: Status: Acute (2) Status post right knee replacement: Status: Acute Reason for Visit Reason for Visit: total knee arthroscopy Hospital Course Hospital Course Mr. Sharif was admitted for an elective right total knee arthroplasty on 11/19/2020. He did well postoperatively. He remained hemodynamically stable. He was continued on aspirin and placed on sequential compression dressings for DVT prophylaxis. He made good progress with therapy. By the first postoperative day he was independent with his walker stable for discharge Physical Exam Narrative: EXAM NARRATIVE: On the day of discharge his knee incision was clean. They had no drainage. There is minimal swelling in the thigh and knee and the calf. No distal neurovascular deficits were noted Urinary Catheter Management^: F: Cath Placed During This Visit: yes, but has since been removed by the nurse Reason for Continuing Indwelling Catheter: Decision to DC Catheter Urinary Catheter Date of Insertion: 11/19/20 Urinary Catheter Time of Insertion: 09:50 Date Urinary Catheter Removed: 11/20/20 Time Urinary Catheter Discontinued: 06:11 Discharge Data Data Completed and Pending: Completed Studies During Hospitalization Category Date Time Status XR knee RT 1-2V 7 3560 Routine Exams 11/19/20 11:36 Completed Labs from last 24 hours 11/20/20 02:09 Hgb 11.1 L Vitals: Last Vital Signs Temp 97.7 F 11/20/20 11:27 Pulse 107 H 11/20/20 11:27 Resp 16 11/20/20 11:27 BP 123/79 11/20/20 11:27 Pulse Ox 94 11/20/20 11:27 Discharge Plan Discharge Prescriptions: New oxycodone 5 mg Tablet 5 mg PO Q4H PRN (Reason: Moderate Pain) 7 Days Qty: 40 RF: 0 acetaminophen 500 mg Tablet 1,000 mg PO Q8H 15 Days Qty: 90 RF: 0 celecoxib 200 mg Capsule 200 mg PO Q12H 15 Days Qty: 30 RF: 0 Continued haloperidol 2 mg tablet 2 mg PO DAILY RF: 0 amlodipine 5 mg tablet 5 mg PO DAILY RF: 0 saw palmetto 450 mg capsule 450 mg PO DAILY RF: 0 Lipo-Flavonoid Plus 200-100 mg tablet 1 tab PO DAILY RF: 0 turmeric root extract 500 mg capsule 1,500 mg PO DAILY RF: 0 losartan 25 mg tablet 25 mg PO DAILY Qty: 30 RF: 5 benztropine [Cogentin] 2 mg Tablet 2 mg PO DAILY RF: 0 aspirin 325 mg Tablet 325 mg PO DAILY RF: 0 Discontinued ibuprofen 600 mg Tablet 600 mg PO Q8H PRN (Reason: Pain) RF: 0 Other Ambulatory Orders: DME: Walker (Order) Location: None Selected Ordered By: Clifford Zamudio Discharge Attestations Time Spent in Discharge Care*: other Quality Metrics Clinical Quality Measures During this hospital stay, did patient experience: None Coding Level of Care Code Acute Crushing Machine Operator for Yaima Jim Diagnoses Osteoarthritis of left knee M17.12 Status post right knee replacement Z96.651
[2020-11-20 14:04] VITALS: BP 123/79; PULSE 107; RESP 16; TEMP 36.5; O2SAT 94
--- NOTE | 2020-11-20 14:30 | PC.NURSE ---
DISCHARGE INSTRUCTIONS DISCHARGE INSTRUCTIONS GIVEN PER THIS PT TO SPOUSE AND PT - BOTH VERBALIZE UNDERSTANDING - SCRIPTS TRANSMITTED TO PHARMACY OF CHOICE - INFORMATION FAXED TO [facility]
== END 2020-11-20 14:32 | disposition home health service (06) ==
LOC: MEDSURG 12:25
PROVIDERS: Admitting Provider Orthopaedic Surgery; PCP Family Medicine; Visit Provider Orthopaedic Surgery
PROC: (CPT 27447; principal; 2020-11-19 09:15)
DX: M17.11 Unilateral primary osteoarthritis, right knee (principal); I48.91 Unspecified atrial fibrillation; I10 Essential (primary) hypertension; Z87.891 Personal history of nicotine dependence; Z79.82 Long term (current) use of aspirin
CPT/HCPCS: 27447; 36415; 51702; 64447; 73560; 76942; 85014; 85018; 97110; 97116; 97161; 97165; 97530; C1776; G0378; J0171; J0690; J1580; J1885; J2795; J7030

== ENCOUNTER → 2021-01-01 11:32 | Outpatient (BNVA) | payer MEDICARE, SELFPAY | PROVIDERS: PCP Family Medicine; Visit Provider Orthopaedic Surgery | DX: M17.11 Unilateral primary osteoarthritis, right knee (principal) | CPT/HCPCS: 73560; 73565 ==

== ENCOUNTER → 2021-02-26 11:04 | Day surgery (SDC) | payer MEDICARE, SELFPAY | PROVIDERS: Visit Provider Orthopaedic Surgery | DX: Z20.828 Contact with and (suspected) exposure to other viral communicable diseases (principal); Z01.812 Encounter for preprocedural laboratory examination | CPT/HCPCS: 87635; 93005; J2795 ==

== ENCOUNTER 2021-03-11 08:46 | Observation (INO) | payer MEDICARE, SELFPAY ==
--- NOTE | 2021-02-26 11:04 | ECG_ITS ---
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 Measurements Intervals [place] Rate: 96 P: MA: QRS: 27 QRSD: 102 T: 34 QT: 341 QTc: 432 Interpretive Statements ATRIAL FIBRILLATION Compared to ECG 09/24/2020 11:58:44 No significant changes Electronically Signed On 02-26-2021 17:38:01 CDT by Glen Bose M.D. [id number] f
[2021-02-26 11:09] VITALS: BMI 24.4
[2021-02-26 11:42] LABS: Basophils # 0.1 10^3/uL (0.0-0.1); Eosinophils % 0.3 %; Hematocrit 44.3 % (42.0-52.0); Hemoglobin 14.1 g/dL (11.7-16.6); Lymphocytes # 1.8 10^3/uL (0.8-4.8); Mean Corpuscular HGB Conc 31.8 g/dL (30.0-36.0); Mean Corpuscular Hemoglobin 28.3 pg (28.0-34.0); Mean Platelet Volume 10.9 fL (7.4-10.4); Monocytes # 0.8 10^3/uL (0.2-0.9); Monocytes % 8.7 %; Neutrophils # 6.14 10^3/uL (1.8-7.7); Neutrophils % 69.3 %; Nucleated Red Blood Cells % 0 %; Platelet Count 267 10^3/cmm (130-400); Red Blood Count 4.98 10^6/uL (4.1-5.3); Red Cell Distribution Width 14.4 % (12.1-15.1); White Blood Count 8.9 10^3/uL (4.0-10.0)
--- NOTE | 2021-02-26 13:49 | ANES.PREANE2 ---
Pre-Anesthetic Assessment Pre-Anesthetic Assessment: Height/Weight: Height 1.77 m Weight 76.204 kg Preop Diagnosis: Osteoarthritis right knee Proposed Procedure: Operation Date: 03/11/21 07:00 Proposed Procedures p Total Knee Arthroplasty 53316 M17.12(Left) - Clifford Zamudio MD Was Beta Isaiah taken within 24 hours: N/A Was Clonidine taken within 24 hours: N/A Social: Social History: No alcohol and No tobacco Exam: Pre-Anes Outpt Exam: alert, oriented x 3 and clear to auscultation bilaterally Additional Exam Findings (including area of procedure): irregular Airway: Submandibular: WNL Cervical ROM: WNL MP: 2 Dentition: Partials CV/HEM: CV/HEM: Afib, HTN and Murmur (MR) Musc/skel: Musc/skel: OA/DJD Neuropsych: Comments: schizophrenia Anesthetic Plan: ASA status: 3 Anesthesia: Regional (specify below) (SAB with adductor blk) Risk of > 500 ml blood loss (7ml/kg in children): No PFSH Anesthesia PFSH: Medical History (Updated 01/01/21 @ 12:10 by Clifford Zamudio MD) History of 2019 novel coronavirus disease (COVID-19) History of hypertension Hx of atrial flutter Hx of schizophrenia Hypertension Surgical History (Updated 01/01/21 @ 12:10 by Clifford Zamudio MD) History of tonsillectomy and adenoidectomy Hx of total knee replacement Status post right knee replacement Family History Mother Hypertension Father Cancer stomach Brother Lung disease Cancer Denies family history of Diabetes CAD (coronary artery disease) Clotting disorder Dementia Chronic kidney disease (CKD) Suicide Anesthesia complication Bleeding disorder Stroke Social History Smoking and tobacco status: former smoker Quit status (tobacco): has quit using tobacco Alcohol intake: former Desire information about alcohol rehabilitation?: No Counseling given: No Data Anesthesia CBC & Chem 7: 02/26/21 11:35 Other Labs: Laboratory Results - last 48 hr 02/26/21 11:35 WBC 8.9 RBC 4.98 Hgb 14.1 Hct 44.3 MCV 89.0 MCH 28.3 MCHC 31.8 RDW 14.4 Plt Count 267 MPV 10.9 H Neut % (Auto) 69.3 Lymph % (Auto) 20.0 [place] % (Auto) 8.7 Eos % (Auto) 0.3 Baso % (Auto) 1.0 Neut # (Auto) 6.14 Lymph # (Auto) 1.8 [place] # (Auto) 0.8 Eos # (Auto) 0.0 Baso # (Auto) 0.1 Nucleated RBC % (auto) 0 Nucleated RBCs # 0.0 Cardiac Studies: No Data to Display
[2021-03-11] VITALS (25 sets, daily range): BP systolic 83–132; BP diastolic 50–92; PULSE 57–93; RESP 12–23; TEMP 35.8–37; O2SAT 92–99
[2021-03-11] MEDS: sodium chloride 0.9% 1,000 ML 30 ML IV (06:36)
--- NOTE | 2021-03-11 06:37 | P.ANESUD_ITS ---
Pre-Anesthetic Update Pre-Anesthetic Assessment: Date of Surgery/Procedure: 03/11/21 Preop Arminda gnosis: Osteoarthritis Left knee Proposed Procedure: Operation Date: 03/11/21 07:00 Proposed Procedures p Total Knee Arthroplasty 99502 M17.12(Left) - Clifford Zamudio MD Last Intake: Intake Last Liquid Date 03/10/21 Last Liquid Time 19:00 Last Solid Date 03/10/21 Last Solid Time 18:00 Vitals: Temperature 97.8 F 03/11/21 06:30 Temperature Source Temporal Artery S can 03/11/21 06:30 Pulse Rate 93 03/11/21 06:30 Respiratory Rate 16 03/11/21 06:30 Blood Pressure 132/92 03/11/21 06:30 Blood Pressure Millie n 105 03/11/21 06:30 Pulse Oximetry 98 03/11/21 06:30 Oxygen Delivery Me thod 03/11/21 06:30 Cardiac Studies: No Data to Display
--- NOTE | 2021-03-11 06:38 | P.ANESUD_ITS ---
Pre-Anesthetic Update Pre-Anesthetic Assessment: Date of Surgery/Procedure: 03/11/21 Preop Arminda gnosis: Osteoarthritis Left knee Proposed Procedure: Operation Date: 03/11/21 07:00 Proposed Procedures p Total Knee Arthroplasty 52225 M17.12(Left) - Clifford Zamudio MD Any changes to Pre-Anesthetic Assessment?: No Last Intake: Intake Last Liquid Date 03/10/21 Last Liquid Time 19:00 Last Solid Date 03/10/21 Last Solid Time 18:00 Vitals: Temperature 97.8 F 03/11/21 06:30 Temperature Source Temporal Artery S can 03/11/21 06:30 Pulse Rate 93 03/11/21 06:30 Respiratory Rate 16 03/11/21 06:30 Blood Pressure 132/92 03/11/21 06:30 Blood Pressure Millie n 105 03/11/21 06:30 Pulse Oximetry 98 03/11/21 06:30 Oxygen Delivery Me thod 03/11/21 06:30 Exam: Pre-Anes Outpt Exam: alert, oriented x 3, clear to auscultation bilaterally and regular rate & rhythm Cardiac Studies: No Data to Display
[2021-03-11] MEDS: gabapentin 300 mg Capsule PO ×3 (06:39→17:18)
[2021-03-11] MEDS: oxyCODONE 20 mg ER (12 HR) Tablet PO (06:39)
[2021-03-11] MEDS: acetaminophen 500 mg Tablet 1000 MG PO ×3 (06:39→23:30)
[2021-03-11] MEDS: CELEcoxib 200 mg Capsule 400 MG PO (06:39)
--- NOTE | 2021-03-11 06:55 | W.PM.OPSFHP ---
Same Day Surgery H&P Indication for Procedure/HPI DATE OF PROCEDURE: March 11, 2021 CHIEF COMPLAINT/INDICATIONFOR SURGICAL PROCEDURE: Patient underwent successful right total knee arthroplasty in November now with continued left knee pain. Here for elective left total knee arthroplasty PREOP DIAGNOSIS: Osteoarthritis Left knee PLANNED PROCEDRUE: Operation Date: 03/11/21 07:00 Proposed Procedures p Total Knee Arthroplasty 52299 M17.12(Left) - Clifford Zamudio MD Medications/Allergies* Home Medications Medication Instructions Recorded Confirmed Type amlodipine 5 mg tablet 5 mg PO DAILY 08/07/20 03/11/21 History haloperidol 2 mg tablet 2.5 mg PO DAILY 08/07/20 03/11/21 History saw palmetto 450 mg capsule 450 mg PO DAILY cap 10/12/20 03/11/21 History turmeric root extract 500 mg 1,500 mg PO DAILY cap 10/12/20 03/11/21 History capsule vitamins-lipotropics 200 mg-100 mg 1 tab PO DAILY tab 10/12/20 03/11/21 History tablet aspirin 325 mg PO DAILY 11/14/20 03/11/21 History benztropine [Cogentin] 0.5 mg PO DAILY 02/26/21 03/11/21 History Allergies/Adverse Reactions Allergy/AdvReac Type Severity Reaction Status Date / Time Penicillins Allergy Unknown Verified 03/11/21 06:03 Current Medications: Generic Name Dose Route Start Last Admin Trade Name Freq PRN Reason Stop Dose Admin Sodium Chloride 1,000 mls @ 30 mls/hr 03/11/21 06:00 03/11/21 06:36 Sodium Chloride 0.9% IV 03/12/21 05:59 30 mls/hr .Q24H ROSALINDA Administration Pertinent History/Comorbid Conditions* Medical History (Updated 01/01/21 @ 12:10 by Clifford Zamudio MD) History of 2019 novel coronavirus disease (COVID-19) History of hypertension Hx of atrial flutter Hx of schizophrenia Hypertension Surgical History (Updated 01/01/21 @ 12:10 by Clifford Zamudio MD) History of tonsillectomy and adenoidectomy Hx of total knee replacement Status post right knee replacement Family History (Updated 12/18/20 @ 10:05 by Ирина Spears RN) Father Mother Lung disease Brother Cancer Father stomach Brother Hypertension Mother Denies family history of Diabetes CAD (coronary artery disease) Clotting disorder Dementia Chronic kidney disease (CKD) Suicide Anesthesia complication Bleeding disorder Stroke Social History Smoking and tobacco status: former smoker Quit status (tobacco): has quit using tobacco Alcohol intake: former Desire information about alcohol rehabilitation?: No Counseling given: No Pertinent Exam Findings alert, oriented x 3, clear to auscultation bilaterally, regular rate & rhythm and operative site marked Recommendations Surgery/Procedure today Coding Level of Care Code Acute Home Comfort Advisor for Yaima Jim
[2021-03-11] MEDS: tranexamic acid 1,000 mg/10mL SDV 1000 MG IRRIGATION (08:13)
[2021-03-11] MEDS: ketorolac 30 mg/mL INJ XX (08:24)
[2021-03-11] MEDS: EPINEPHrine 1 mg/mL INJ XX (08:24)
--- NOTE | 2021-03-11 08:28 | ANES.PROC ---
Anesthesia Procedures Procedure/Date: 03/11/21 Nerve Block ^: Nerve Block 1: Main Anesthesia: spinal anesthesia block Time Out Performed: Yes Consent: requested by attending/covering physician, from patient, risks and benefits reviewed and patient agrees to proceed Nerve block location: adductor canal (left) Anesthesia monitors applied: pulse oximetry, EKG, BP cuff and oxygen Nerve block position: supine Anesthetic Used: ropivicaine 0.5% Amount of anesthesia used (mL): 20 Ultrasound used to: recognize landmarks Nerve Stimulator Used?: No Interscalene/Femoral BLK: 4 stimuplex 21 g needle used for position and inplane approach and visualize local anesthetic spread Injection: neg aspiration of heme Patient Tolerated Procedure: well
--- NOTE | 2021-03-11 08:45 | P.OP_ITS ---
Operative Report Date of procedure: March 11, 2021 Pre-op Diagnosis: Osteoarthritis Left knee Post-op diagnosis: same Post-op Findings: Same Procedure Done: Left total knee arthroplasty Implants: Wallace total knee 1)Size 4 triathalon cruciate retaining femoral component 2) Size 5 Tritanium tibial component 3) 35 mm /10 mm thickness Tritanium asymetric patella 4) Size 5/16 mm thickness CR tibial bearing insert Pathology: none sent Surgeon: Clifford Zamudio Anesthesia: Nerve Block (Spinal, adductor canal) Estimated blood loss (mL): 100 Findings: Patient had severe eburnation in his medial femoral condyle and medial tibial plateau more so than over the patella and trochlea with a resting varus deformity Condition: stable Procedure: The patient was taken to the operating room. Patient was given 1 g of tranexamic acid . The above anesthesia provided by the anesthesia service. A timeout was performed. The patient was prepped and draped in the usual fashion with the lower extremity exposed. A anterior incision was made, midline, from a point proximal to the patella to the distal tibial tubercle. The knee was entered through a medial parapatellar approach. The patella could be displaced laterally and the knee flexed. The patellar fat pad was resected to provide better visibility. Retractors were placed medially and laterally adjacent to the tibial plateau. The femoral canal was drilled in line with the longitudinal axis of the femur. Intramedullary femoral guide for used to make a distal femoral cut in 5 degrees of valgus, resecting `10 mm from the more prominent condyle. An additional 2 mm were taken to account for the preoperative flexion contracture next the extra medullary tibial guide was placed in alignment with the longitudinal axis of the tibia. The cutting guides were set to remove just over 2 mm from the low medial tibial plateau. The proximal tibia was then cut. This involved resection of significantly more lateral tibia that medial to accommodate bone loss the femoral measuring guide was then placed over the distal femur. Rotation was verified checking the relationship of the guide to the condyle and the trochlear groove. The femur was measured and cut for the desired femoral component. The desired tibial baseplate was then chosen. A trial reduction with the femur tibial baseplate and polyethylene was done, assuring that the knee was stable throughout full motion. Ligament balancing involved a release of the deep medial collateral ligament, removal of medial osteophytes and the margin of the medial tibial plateau.The tibia was prepared for the tibial baseplate. Patellar thickness was then measured. The patella was cut removing articular cartilage and prepared for appropriate size patellar button. surfaces were cleaned with a gentamicin/tranexamic acid solution. The femur tibia and patella were then press-fit into place. The posterior capsule and collateral ligaments were then injected with a solution of 100 mL of 0.2% ropivacaine, 1 mL of a 1:1000 epinephrine solution, and 30 mg of Toradol. Final polyethylene component was then snapped into place into the tibia. The tranxanemic acid was left contact with the knee for 5 minutes before the knee was irrigated with saline. The extensor retinaculum was closed with a running 1 Stratafix.. The sub cutaneous tissues were closed with 2-0 Vicryl and the skin was closed with a running 3-0 Stratafix. The wound was covered with a Dermabond Prinio dressing. It was covered with 4xrs and a compressive Tubigauae was applied. The patient was taken to recovery room in stable condition.
--- NOTE | 2021-03-11 08:57 | XRR_ITS ---
PROCEDURE INFORMATION: Exam: XR Left Knee Exam date and time: 03/11/2021 8:57 AM Age: 75 years old Clinical indication: Device placement; Joint replacement hardware; Prior surgery; Surgery date: Post-operative (0-2 days); Surgery type: Left total knee arthroplasty TECHNIQUE: Imaging protocol: XR Left knee. Views: 1 or 2 views. COMPARISON: CR XR knees AP WB w BI lmt ORTH 08/07/2020 3:17 PM FINDINGS: Bones/joints: The patient has undergone recent insertion of a total knee joint prosthesis. Some gas is present in the soft tissues from the recent surgery. No fractures are seen. The position and alignment of the prosthesis is satisfactory. Soft tissues: See Bones/joints finding. XR/XR knee LT 1-2V 03656 IMPRESSION: Satisfactory postop appearance of the total knee prosthesis.
[2021-03-11] MEDS: albumin 12.5 GM/250 ML VIAL IV (09:34)
[2021-03-11] MEDS: sodium chloride 0.9% 1,000 ML 100 ML IV ×2 (09:54→15:44)
--- NOTE | 2021-03-11 09:55 | SUR.PHASEI ---
0900 PT TO PACU AWAKES TO VOICE, ORIENTED, LT KNEE DRESSING D/I DISTAL FOOT COOL PINK WITH STRONG REGULAR PULSE NOTED X RAY AT BEDSIDE WITH DR PELAYO 09 FIRST ICE TO LT KNEE NO BLEEDING NOTED TO DRESSING
--- NOTE | 2021-03-11 09:57 | SUR.PHASEI ---
0934 PT BP REMAINS LOW, DR SALGADO AT BEDSIDE ALBUMIN 250ML ORDERED IV , SEE MED GIVEN AND ORDER, PT AWAKE ALERT TAKING ICE CHIPS [place] PATENT OF YELLOW URINE 100 EMPTIED. 0958 PT AWAKE ALERT ON RA SATS 94% -98% ON RA, UNABLE TO GIVE REPORT AT THIS TIME, HOLDING PT TO GIVE REPORT.
--- NOTE | 2021-03-11 10:02 | SUR.PHASEI ---
PT SPINAL WAS T-10 ON ARRIVAL TO PACU IS NOW AT T-12 PT ABLE TO MOVE RT FOOT AND THIGH. WAITING TO GIVE REPORT TO FLOOR PT SON NOTIFIED OF PT BEING STABLE AND BEING HELD TO TAKE TO FLOOR SOON.
[2021-03-11] MEDS: aspirin 325 mg Tablet PO (10:51)
[2021-03-11] MEDS: sennosides-docusate Tablet 2 TAB PO ×2 (10:51→17:18)
--- NOTE | 2021-03-11 13:14 | PC.CHAP ---
Pastoral Care Encounter/Spiritual Assessment Type of Contact [] Declined marine pipe welder visit [] Patient/Family/Request visit [] Outpatient visit [] Follow-up visit [] Physician referral [] Code/Alert [] Routine visit [] Staff referral [] Actively dying [] Patient sleeping [] Family support [] [] Out of room [] Palliative care [] [] Receiving care in room [] Pre-surgical visit [] Trauma [] Long length of stay [] ICU visit [] Other: Relational/Emotional Strength [] Patient feels connected with others/family/visitors/staff [] Distress [] Loneliness/isolation [] Abandonment Spirituality of Patient [x] Person of Melania [x] Attends Anglican of their Melania [] Believes in Prayer [] Reads Bible or Holiness materials [] There are Spiritual issues to be addressed Financial Services Professional Interventions [x] Prayer [] Active listening [] Non-anxious presence [] Spiritual/emotional support [] Crisis/trauma care [] Spiritual counseling [] Bereavement support [] Provided bereavement packet [] Provided Bible/devotional materials [] Provided toy/stuffed animal, coloring book to patient or family member [] Provided Communion [] Anointing/[place] [] Salvation [] Completed spiritual assessment [] Other: Impact on Illness or Injury [] Angry [] Fearful [] Anxious [] Often cries [] Exhaustion [] Unable to work [] Unable to attend methodist [] Unable to walk/stand [] Unable to read [] Unable to drive [] Unable to eat/drink [] Unable to sleep [] Unable to be with family [] Patient intubated [] Other: Summary Time spent with patient
--- NOTE | 2021-03-11 15:31 | ANE.PACU2 ---
Inpatient post-anesthesia follow up: Airway intact: Yes Vital signs: Temperature 97.7 F Pulse Rate 66 Respiratory Rate 18 Blood Pressure 112/70 Pulse Oximetry 92 Oxygen Delivery Me thod Room Air Oxygen Flow Rate 8 Fraction of Inspir ed Oxygen Hydration adequate: Yes Nausea and vomiting: No Pain level: 1 Mental status: Baseline
[2021-03-11] MEDS: CELEcoxib 200 mg Capsule PO (17:18)
--- NOTE | 2021-03-11 18:03 | PC.NURSE ---
SHIFT SUMMARY PATIENT HAS DONE VERY WELL SINCE ARRIVING TO THE FLOOR FROM THE OR. PAIN WELL CONTROLLED. WORKED WELL WITH THERAPY. SURGICAL DRESSING IS C/D/I. ICE IN PLACE. 700ML OF URINE OUTPUT IN [place]. RESTING WELL IN BED AT THIS TIME WITH NO COMPLAINTS.
[2021-03-12] VITALS: BP 113/79; PULSE 81; RESP 17; TEMP 36.6; O2SAT 95
[2021-03-12] MEDS: sodium chloride 0.9% 1,000 ML 100 ML IV (02:21)
[2021-03-12 02:42] LABS: Hemoglobin 11.3 g/dL (11.7-16.6)
[2021-03-12 04:00] VITALS: BP 111/78; PULSE 84; RESP 16; TEMP 37.1; O2SAT 97
[2021-03-12] MEDS: acetaminophen 500 mg Tablet 1000 MG PO (06:12)
[2021-03-12] MEDS: CELEcoxib 200 mg Capsule PO (06:12)
[2021-03-12 08:00] VITALS: BP 139/85; PULSE 91; RESP 18; TEMP 37; O2SAT 95
[2021-03-12] MEDS: sennosides-docusate Tablet 2 TAB PO (08:48)
[2021-03-12] MEDS: benztropine 1 mg Tablet 0.5 MG PO (08:48)
[2021-03-12] MEDS: amlodipine 5 mg Tablet PO (08:48)
[2021-03-12] MEDS: gabapentin 300 mg Capsule PO (08:49)
[2021-03-12] MEDS: aspirin 325 mg Tablet PO (08:49)
[2021-03-12 08:53] VITALS: RESP 18
[2021-03-12] MEDS: oxyCODONE 5 mg IR Tab/Cap PO (08:53)
[2021-03-12] MEDS: haloperidol 5 mg Tablet 2.5 MG PO (08:53)
--- NOTE | 2021-03-12 09:45 | PC.CHAP ---
Pastoral Care Encounter/Spiritual Assessment Type of Contact [] Declined information clerk automobile club visit [] Patient/Family/Request visit [] Outpatient visit [] Follow-up visit [] Physician referral [] Code/Alert [x] Routine visit [] Staff referral [] Actively dying [] Patient sleeping [] Family support [] [] Out of room [] Palliative care [] [] Receiving care in room [] Pre-surgical visit [] Trauma [] Long length of stay [] ICU visit [] Other: Relational/Emotional Strength [x] Patient feels connected with others/family/visitors/staff [] Distress [] Loneliness/isolation [] Abandonment Spirituality of Patient [x] Person of Melania [] Attends Caodaism of their Melania [x] Believes in Prayer [] Reads Bible or Jew materials [] There are Spiritual issues to be addressed Traffic Monitor Specialist Interventions [x] Prayer [x] Active listening [] Non-anxious presence [] Spiritual/emotional support [] Crisis/trauma care [] Spiritual counseling [] Bereavement support [] Provided bereavement packet [] Provided Bible/devotional materials [] Provided toy/stuffed animal, coloring book to patient or family member [] Provided Communion [] Anointing/[place] [] Salvation [x] Completed spiritual assessment [] Other: Impact on Illness or Injury [] Angry [] Fearful [] Anxious [] Often cries [] Exhaustion [] Unable to work [] Unable to attend gnosticism [] Unable to walk/stand [] Unable to read [] Unable to drive [] Unable to eat/drink [] Unable to sleep [] Unable to be with family [] Patient intubated [] Other: Summary patient doing good not much pain going h0me Time spent with patient 10 min
--- NOTE | 2021-03-12 10:08 | PC.OT ---
OT EVALUATION ORDERS RECEIVED. OT SCREEN COMPLETED. PATIENT IS ABLE TO DEMONSTRATE INDEPENDENCE WITH ADLS. NO FURTHER SKILLED OT REQUIRED AT THIS TIME.
[2021-03-12 11:54] VITALS: BP 127/88; PULSE 75; RESP 18; TEMP 36.7; O2SAT 95
[2021-03-12 12:16] VITALS: BP 127/88; PULSE 75; RESP 18; TEMP 36.7; O2SAT 95
--- NOTE | 2021-03-12 12:23 | PM.DCS ---
Discharge Providers Date of Admission: 03/11/21 08:46 Date of Discharge: March 12, 2021 Attending Provider at Admission: Clifford Zamudio MD Attending Provider at Discharge: Clifford Zamudio MD Diagnoses at Discharge Discharge Diagnosis (1) Osteoarthritis of left knee: Status: Resolved (2) Status post left knee replacement: Status: Acute Reason for Visit Reason for Visit: Primary osteoarthritis left knee Hospital Course Hospital Course Mr. Sharif was admitted after an uncomplicated left total knee arthroplasty. He was managed on aspirin and foot pumps for DVT prophylaxis. He remained hemodynamically stable. He made excellent progress of therapy. By the first postoperative day he was thought stable for discharge. Physical Exam Narrative: EXAM NARRATIVE: On the day of discharge his knee incision was clean. They had no drainage. There is minimal swelling in the thigh and knee and the calf. No distal neurovascular deficits were noted Urinary Catheter Management^: Coude: Cath Placed During This Visit: yes, but has since been removed by the nurse Reason for Continuing Indwelling Catheter: Decision to DC Catheter Urinary Catheter Date of Insertion: 03/11/21 Urinary Catheter Time of Insertion: 07:30 Date Urinary Catheter Removed: 03/12/21 Time Urinary Catheter Discontinued: 06:21 Discharge Data Data Completed and Pending: Completed Studies During Hospitalization Category Date Time Status XR knee LT 1-2V 7 [id number] Routine Exams 03/11/21 08:57 Completed Labs from last 24 hours 03/12/21 02:28 Hgb 11.3 L Vitals: Last Vital Signs Temp 98.0 F 03/12/21 12:16 Pulse 75 03/12/21 12:16 Resp 18 03/12/21 12:16 BP 127/88 03/12/21 12:16 Pulse Ox 95 03/12/21 12:16 Discharge Plan Discharge Patient Disposition: Home Condition: Stable Prescriptions: New celecoxib 200 mg Capsule 200 mg PO Q12H 15 Days Qty: 30 RF: 0 acetaminophen 500 mg Tablet 1,000 mg PO Q8H 14 Days Qty: 84 RF: 0 gabapentin 300 mg Capsule 300 mg PO BID 7 Days Qty: 14 RF: 0 oxycodone 5 mg Tablet 5 mg PO Q4H PRN (Reason: Moderate Pain) 7 Days Qty: 30 RF: 0 Continued haloperidol 2 mg tablet 2.5 mg PO DAILY RF: 0 amlodipine 5 mg tablet 5 mg PO DAILY RF: 0 saw palmetto 450 mg capsule 450 mg PO DAILY RF: 0 Lipo-Flavonoid Plus 200-100 mg tablet 1 tab PO DAILY RF: 0 turmeric root extract 500 mg capsule 1,500 mg PO DAILY RF: 0 losartan 25 mg tablet 25 mg PO DAILY Qty: 90 RF: 1 benztropine 0.5 mg Tablet 0.5 mg PO DAILY RF: 0 aspirin 325 mg Tablet 325 mg PO DAILY RF: 0 Discharge Orders: Discharge Order (Routine); Ordered 03/12/21 Ordered By: Cliffodr Zamudio Referrals: Clifofrd Zamudio MD [Physician] - 03/15/21 8:00 am Discharge Diet: Advance as tolerated Discharge Activity: Limit activity as instructed Patient Instructions: Acetaminophen (By mouth), Gabapentin (By mouth), Oxycodone, Rapid Release (By mouth), Celecoxib (By mouth), Total Knee Replacement (DC), Opioid Safety Activity Restrictions/Additional Instructions: Okay to shower Keep Tubigauze sleeve in place for swelling. Okay to remove for hygiene. Apply FirstIce up to 20 min/hr for pain and swelling Take Celebrex twice a day for the next 15 days for pain , discontinue other anti-inflammatories Take Neurontin twice a day for 7 days. Take Tylenol 500mg (1-2 tabs) as needed 3 times a day for mild pain take oxycodone for breakthrough pain. Exercises per physical therapy. May weight-bear as tolerated on total knee arthroplasty Discharge Attestations Time Spent in Discharge Care*: other Quality Metrics Clinical Quality Measures During this hospital stay, did patient experience: None Coding Level of Care Code Acute [facility] DC note Diagnoses Osteoarthritis of left knee M17.12 Status post left knee replacement Z96.652
== END 2021-03-12 12:17 | disposition home or self-care (01) ==
LOC: MEDSURG 08:46
PROVIDERS: Anesthesiology; Admitting Provider Orthopaedic Surgery; Visit Provider Orthopaedic Surgery
PROC: (CPT 27447; principal; 2021-03-11 07:00)
DX: M17.12 Unilateral primary osteoarthritis, left knee (principal); Z79.82 Long term (current) use of aspirin; I10 Essential (primary) hypertension; Z87.891 Personal history of nicotine dependence; I48.91 Unspecified atrial fibrillation; M19.90 Unspecified osteoarthritis, unspecified site
CPT/HCPCS: 27447; 36415; 51702; 64447; 73560; 76942; 85018; 85025; 96365; 97116; 97161; C1776; G0378; J0171; J0690; J1580; J1885; J2250; J2704; J2795; J7030; P9041

== ENCOUNTER → 2021-04-23 14:28 | Outpatient (BNVA) | payer MEDICARE, SELFPAY | PROVIDERS: PCP Family Medicine; Visit Provider Orthopaedic Surgery | DX: Z48.89 Encounter for other specified surgical aftercare (principal); Z96.652 Presence of left artificial knee joint | CPT/HCPCS: 73560; 73565 ==

== ENCOUNTER 2021-12-19 11:18 | Outpatient (CLI) | payer MEDICARE, SELFPAY ==
--- NOTE | 2021-12-19 | USCV_ITS ---
Gwyn Sharif Age: 76 Gender: M : 1945 Exam Date: 12/19/2021 11:54 Ordering Phys: Abdiaziz Martin MD ([email or web address]) Technologist: Exam Location: [facility] Indication: cp BP: 120 / 80 HR: 71 Rhythm: Sinus Technical Quality: Adequate MEASUREMENTS (Male / Female) Normal Values 2D ECHO LV Diastolic Diameter PLAX 4.6 cm 4.2 - 5.9 / 3.9 - 5.3 cm LV Systolic Diameter PLAX 2.5 cm IVS Diastolic Thickness 1.0 cm 0.6 - 1.0 / 0.6 - 0.9 cm IVS Systolic Thickness 1.3 cm LVPW Diastolic Thickness 1.1 cm 0.6 - 1.0 / 0.6 - 0.9 cm LVPW Systolic Thickness 1.3 cm LVOT Diameter 2.0 cm LV Ejection Fraction 2D Teich 71.0 % LV Ejection Fraction MOD 2C 50.5 % LV Ejection Fraction 2C AL 50.1 % LA Diameter 4.4 cm Aorta at Sinotubular Diameter 2.9 cm M-MODE Aortic Annulus Diameter 3.1 cm LA Ao Ratio MM 1.5 MV E Point Septal Separation 1.0 cm DOPPLER AV Peak Velocity 141.0 cm/s LVOT Peak Velocity 65.0 cm/s AV Area Cont Eq vti 1.2 cm squared AV Area Cont Eq pk 1.5 cm squared MV Area PHT 5.0 cm squared Mitral E to A Ratio 2.5 MV E' Velocity 46.0 cm/s Mitral E to MV E' Ratio 6.4 Mitral E to LV E' Lateral Ratio 5.0 Mitral E to LV E' Septal Ratio 8.9 TR Peak Velocity 265.0 cm/s TR Peak Gradient 28.1 mmHg TV Peak E Velocity 130.0 cm/s Right Atrial Pressure 3.0 mmHg Pulmonary Artery Systolic Pressu 31.1 mmHg PV Peak Velocity 74.0 cm/s FINDINGS Left Ventricle Mild diffuse hypokinesia of the left ventricle with ejection fraction of around 50%. Right Ventricle The right ventricle is normal in size and function. Right Atrium Mildly increased right atrial size. Left Atrium Mildly increased left atrial size. Mitral Valve Thickened mitral valve. Moderate mitral valve regurgitation. Aortic Valve Thickened aortic valve. Tricuspid Valve [id number]-ctsnftdy tricuspid valve regurgitation. Estimated pulmonary artery peak systolic pressure was 31 mmHg Pulmonic Valve No gross abnormalities noted Pericardium No significant pericardial effusion Aorta Normal ascending aorta dimension. CONCLUSIONS Mild diffuse hypokinesia of the left ventricle with ejection fraction of around 50%. Mild biatrial enlargementThickened mitral valve. Moderate mitral valve regurgitation. Thickened aortic valve. Kfjm-mi-ebojxwed tricuspid valve regurgitation. Estimated pulmonary artery peak systolic pressure was 31 mmHg. There is no pericardial effusion. There are no intracardiac masses. Compared to the study from 11/06/2020, there may not be a significant change Dr Abdiaziz Martin MD FAC (Electronically Signed) Final Date: 20 December 2021 08:48 S
== END 2021-12-19 11:19 | disposition home or self-care (01) ==
PROVIDERS: PCP Family Medicine; Visit Provider Internal Medicine Cardiovascular Disease
DX: R06.00 Dyspnea, unspecified (principal); R07.9 Chest pain, unspecified; I08.3 Combined rheumatic disorders of mitral, aortic and tricuspid valves
CPT/HCPCS: 93306

== ENCOUNTER → 2021-12-31 13:38 | Outpatient (BNVA) | payer MEDICARE, SELFPAY | PROVIDERS: PCP Family Medicine; Visit Provider Internal Medicine Cardiovascular Disease | DX: I48.91 Unspecified atrial fibrillation (principal); I25.5 Ischemic cardiomyopathy; I34.0 Nonrheumatic mitral (valve) insufficiency; Z87.891 Personal history of nicotine dependence; Z79.82 Long term (current) use of aspirin; Z79.01 Long term (current) use of anticoagulants; I12.9 Hypertensive chronic kidney disease with stage 1 through stage 4 chronic kidney disease, or unspecified chronic kidney disease; N18.9 Chronic kidney disease, unspecified; E78.5 Hyperlipidemia, unspecified | CPT/HCPCS: 36415; 80048; 80076; 84443; 85025; 99214 ==

== ENCOUNTER → 2022-04-01 14:25 | Outpatient (BNVA) | payer MEDICARE, SELFPAY | PROVIDERS: PCP Family Medicine; Visit Provider Internal Medicine Cardiovascular Disease | DX: I34.0 Nonrheumatic mitral (valve) insufficiency (principal); I25.5 Ischemic cardiomyopathy; I48.92 Unspecified atrial flutter; Z79.01 Long term (current) use of anticoagulants; I10 Essential (primary) hypertension; Z87.891 Personal history of nicotine dependence | CPT/HCPCS: 99214 ==

== ENCOUNTER → 2022-10-01 13:12 | Outpatient (BNVA) | payer MEDICARE, SELFPAY | PROVIDERS: PCP Family Medicine; Visit Provider Nurse Practitioner Family | DX: I48.91 Unspecified atrial fibrillation (principal); I10 Essential (primary) hypertension; Z79.01 Long term (current) use of anticoagulants; Z87.891 Personal history of nicotine dependence | CPT/HCPCS: 99214 ==

== ENCOUNTER 2022-10-15 08:13 | Outpatient (CLI) | payer MEDICARE, SELFPAY ==
--- NOTE | 2022-10-15 | CT_ITS ---
WS: [id number] CT HEAD TECHNIQUE: Noncontrast and contrast-enhanced CT of the head. CLINICAL INFORMATION: SQUAMOUS CELL CARCINOMA COMPARISON: None. DLP: 2641.[address] scans at [facility] use at least one of these dose optimization techniques: automated e xposure control; mA and/or kV adjustment per patient size (includes targeted exams where dose is matc hed to clinical indication); or iterative reconstruction. FINDINGS: No evidence of intracranial hemorrhage or mass effect. Ventricular system and basal cisterns are joseph nt. No abnormal intracranial enhancement. No evidence of enhancing intracranial metastatic disease. V ascular calcification. Mastoid air cells are well aerated. Partial opacification LEFT maxillary sinus. Chronic infarct with encephalomalacia in the RIGHT parasa gittal parietal lobe. Moderate small vessel changes with moderate parenchymal volume loss. No other s uspicious findings. CT/CT head wo/w con [id number] IMPRESSION: 1. No evidence of enhancing intracranial metastatic disease. 2. 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 3. Moderate small vessel changes with moderate parenchymal volume loss. 4. Intracranial vascular calcification. 5. No abnormal intracranial enhancement.
--- NOTE | 2022-10-15 08:30 | CT_ITS ---
WS: [id number] CT NECK NONCONTRAST AND CONTRAST TECHNIQUE: Noncontrast and Contrast-enhanced CT of the neck with coronal and sagittal reformatted leandra ges. CLINICAL INFORMATION: Surveillance following SCC excision and radiation COMPARISON: None. DLP: 2641.[address] scans at [facility] use at least one of these dose optimization techniques: automated e xposure control; mA and/or kV adjustment per patient size (includes targeted exams where dose is matc hed to clinical indication); or iterative reconstruction. FINDINGS:Dental artifact degrades images in the anterior face soft tissues which are not well evaluat ed. Mild induration in these areas compatible with radiation therapy. Fluid in the LEFT greater than RIGHT maxillary sinuses compatible with sinusitis. Frontal sinuses are well aerated. Small amount of fluid in the sphenoid sinuses. Mastoid air cells well aerated. Posterior nasopharynx is normal. Normal parapharyngeal fat. Parotid glands are normal. Normal submand ibular glands. Tongue base is normal. No evidence of supraglottic or glottic mass. Thyroid gland is n ormal. Fibrosis in the lung apices. Normal thyroid gland. No cervical lymphadenopathy. Moderate spondylitic changes cervical spine. Disc space narrowing worse at C3-C4, C5-C6, and C6-C7. Slight anterolisthesis C4 on C5. CT/CT neck wo/w con [id number] IMPRESSION: 1. Dental artifact degrades images in the anterior face soft tissues at the le tana of the mandible and maxilla. These areas are not well evaluated. Mild indur ation in these areas compatible with radiation therapy. 2. Normal posterior nasopharynx. Normal parapharyngeal fat. 3. No evidence of supraglottic or glottic mass. 4. No cervical lymphadenopathy. 5. Paranasal sinusitis as described above. Mastoid air cells well aerated. 6. Moderate spondylitic changes cervical spine.
[2022-10-15] MEDS: iohexol 350 mg/mL 500 mL Btl (per mL) IV (08:49)
[2022-10-15 09:00] LABS: Blood Urea Nitrogen 10 mg/dL (8-23)
== END 2022-10-15 08:14 | disposition home or self-care (01) ==
PROVIDERS: PCP Family Medicine; Visit Provider Dermatology
DX: Z85.89 Personal history of malignant neoplasm of other organs and systems (principal); Z92.3 Personal history of irradiation
CPT/HCPCS: 70470; 70492; 82565; 84520; Q9967

== ENCOUNTER → 2023-01-22 13:09 | Outpatient (BNVA) | payer MEDICARE, SELFPAY | PROVIDERS: PCP Family Medicine; Visit Provider Dermatology | DX: L57.0 Actinic keratosis (principal); Z85.828 Personal history of other malignant neoplasm of skin; L40.8 Other psoriasis; L82.1 Other seborrheic keratosis; L57.8 Other skin changes due to chronic exposure to nonionizing radiation; L81.4 Other melanin hyperpigmentation; Z87.891 Personal history of nicotine dependence | CPT/HCPCS: 17004; 99214 ==

== ENCOUNTER → 2023-04-13 14:44 | Outpatient (BNVA) | payer MEDICARE, SELFPAY | PROVIDERS: PCP Family Medicine; Visit Provider Internal Medicine Cardiovascular Disease | DX: R07.9 Chest pain, unspecified (principal); R06.02 Shortness of breath; I48.91 Unspecified atrial fibrillation | CPT/HCPCS: 36415; 80048; 83880; 93005; 99214 ==

== ENCOUNTER 2023-04-22 13:53 | Outpatient (CLI) | payer MEDICARE, SELFPAY ==
--- NOTE | 2023-04-22 14:30 | USCV_ITS ---
Gwyn Sharif Age: 77 Gender: M : 1945 Exam Date: 04/22/2023 15:10 Ordering Phys: Abdiaziz Martin MD [email or web address] Technologist: Collins Townsend Exam Location: [facility] [place] Indication: MR/ SOB BP: 114 / 78 HR: 86 Rhythm: Other Technical Quality: Adequate MEASUREMENTS (Male / Female) Normal Values 2D ECHO LVOT Diameter 2.0 cm LV Ejection Fraction MOD 2C 52.8 % LV Ejection Fraction 2C AL 54.4 % LA Diameter 3.8 cm LA Width 3.2 cm LA Height 5.3 cm RA Width 4.1 cm RA Height 5.2 cm Aorta at Sinotubular Diameter 2.7 cm IVC Diameter 1.6 cm M-MODE Aortic Annulus Diameter 2.7 cm LA Ao Ratio MM 1.5 MV E Point Septal Separation 0.6 cm DOPPLER AV Peak Velocity 107.0 cm/s LVOT Peak Velocity 99.0 cm/s AV Area Cont Eq vti 3.0 cm squared AV Area Cont Eq pk 3.0 cm squared MV Peak Velocity 76.0 cm/s MV Area PHT 5.8 cm squared Mitral E to A Ratio 3.1 MV E' Velocity 41.0 cm/s Mitral E to MV E' Ratio 6.1 Mitral E to LV E' Lateral Ratio 5.4 Mitral E to LV E' Septal Ratio 7.2 TR Peak Velocity 314.6 cm/s TR Peak Gradient 39.6 mmHg TR Mean Velocity 230.6 cm/s TR Mean Gradient 23.5 mmHg TR Velocity Time Integral 78.1 cm Right Atrial Pressure 3.0 mmHg Pulmonary Artery Systolic Pressu 42.6 mmHg PV Peak Velocity 73.0 cm/s RV Acceleration Time 0.1 s RV Ejection Time 0.3 s RV AcT/ET 0.3 FINDINGS Left Ventricle Normal left ventricular size with borderline low, EF 50-55 %. Relative hypokinesia of the inferior wall Right Ventricle The right ventricle is normal in size and function. Right Atrium Mildly increased right atrial size. Left Atrium Mildly increased left atrial size. Mitral Valve Thickened mitral valve. Mild prolapse of the anterior mitral leaflet. Moderate eccentric mitral regurgitation Aortic Valve No gross abnormalities noted Tricuspid Valve Mild tricuspid valve regurgitation. Estimated pulmonary artery peak systolic pressure 43 mmHg Pulmonic Valve No gross abnormalities noted Pericardium Normal pericardium without effusion. Aorta Normal ascending aorta dimension. IVC The inferior vena cava appears normal. CONCLUSIONS Normal left ventricular size with a borderline low ejection fraction of 50 to 55% . Relative hypokinesia of the inferior wall. Mild biatrial enlargementThickened mitral valve. Mild prolapse of the anterior mitral leaflet. Moderate eccentric mitral regurgitation Mild tricuspid valve regurgitation. Estimated pulmonary artery peak systolic pressure 43 mmHg There is no pericardial effusion. There are no intracardiac masses. Compared to the study from 12/19/2021, there may not be significant change Dr Abdiaziz Martin MD FAC (Electronically Signed) Final Date: 23 April 2023 22:15 S
== END 2023-04-22 13:54 | disposition home or self-care (01) ==
PROVIDERS: PCP Family Medicine; Visit Provider Internal Medicine Cardiovascular Disease
DX: R06.09 Other forms of dyspnea (principal); I34.1 Nonrheumatic mitral (valve) prolapse; I34.0 Nonrheumatic mitral (valve) insufficiency; I07.1 Rheumatic tricuspid insufficiency
CPT/HCPCS: 93306

== ENCOUNTER 2023-05-05 18:18 | Observation (INO) | payer MEDICARE, SELFPAY ==
[2023-05-05 18:21] VITALS: BMI 30.2
[2023-05-05 18:26] VITALS: BP 131/85; PULSE 96; RESP 16; TEMP 37.1; O2SAT 92
--- NOTE | 2023-05-05 18:32 | CTR_ITS ---
PROCEDURE INFORMATION: Exam: CT Head Without Contrast Exam date and time: 05/05/2023 6:56 PM Age: 77 years old Clinical indication: Stroke-like symptoms; Altered mental status/memory loss; Additional info: Symptoms of acute stroke TECHNIQUE: Imaging protocol: Computed tomography of the head without contrast. Radiation optimization: All CT scans at this facility use at least one of these dose optimization techniques: automated exposure control; mA and/or kV adjustment per patient size (includes targeted exams where dose is matched to clinical indication); or iterative reconstruction. Other technique: STROKE PROTOCOL was implemented. REPORTING DATA: Count of CT and Cardiac NM exams in prior 12 months: This patient has received 2 known CTs and 0 known cardiac nuclear medicine studies in the 12 months prior to the current study. COMPARISON: CT head wo/w con [id number] 10/15/2022 8:51 AM RADIATION DOSE METRICS: Total DLP (mGy-cm): 1036.88 FINDINGS: Brain: Moderate diffuse cortical volume loss. Mild chronic hypodensities in supratentorial periventricular and subcortical white matter, consistent with microangiopathy. No intracranial hemorrhage. Encephalomalacia in the parafalcine right parietal lobe. Cerebral ventricles: No ventriculomegaly. Paranasal sinuses: Mild mucosal thickening in the paranasal sinuses. No air-fluid level. Mastoid air cells: Visualized mastoid air cells are well aerated. Bones/joints: Unremarkable. No acute fracture. Soft tissues: Unremarkable. Vasculature: No hyperdense artery. CT/CT head thrombolytic [id number] IMPRESSION: 1. No acute intracranial abnormality. ASSESSMENT: ASPECTS ([place] Stroke Program Early CT Score) is 10.
--- NOTE | 2023-05-05 18:32 | ECG_ITS ---
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 Measurements Intervals [place] Rate: 94 P: 56 [place]: 132 QRS: 24 QRSD: 83 T: 58 QT: 357 QTc: 448 Interpretive Statements SINUS RHYTHM Compared to ECG 05/05/2023 19:05:38 Atrial fibrillation no longer present Aberrant conduction of supraventricular beat(s) no longer present Ventricular premature complex(es) no longer present Electronically Signed On 07-06-2023 10:18:37 CDT by Rosetta Montesinos M.D. [email or web address]
--- NOTE | 2023-05-05 18:33 | XRR_ITS ---
PROCEDURE INFORMATION: Exam: XR Chest Exam date and time: 05/05/2023 6:37 PM Age: 77 years old Clinical indication: Other: AMS TECHNIQUE: Imaging protocol: Radiologic exam of the chest. Views: 1 view. COMPARISON: CT neck wo/w con [id number] 10/15/2022 8:51 AM FINDINGS: Lungs: Minimal atelectasis in the left lung base. The lungs are otherwise clear. Pleural spaces: Unremarkable. No pleural effusion. No pneumothorax. Heart/Mediastinum: Unremarkable. No cardiomegaly. Bones/joints: Mild curvature of the thoracic spine. XR/XR chest 1V portable [id number] IMPRESSION: No acute findings.
--- NOTE | 2023-05-05 18:34 | W.ED.AMS ---
HPI - Altered Mental Status General: Chief Complaint: Altered Mental Status Stated Complaint: AMS Time Seen by Provider: 05/05/23 18:18 Source: patient and EMS Mode of arrival: EMS Limitations: no limitations History of Present Illness: This patient was transported to our emergency department by EMS from his home. States and this is collaborated by EMS who provides much of the history. Apparently the patient woke in his normal state of health and then took his to the doctor as she does not drive. He states during the return trip home from [place] there was apparent feeling like he was off and that he seemed to be weaving from side to side in the road. He denied any associated weakness numbness difficulty with speech etc. Does have a history of atrial fibrillationTakes Coumadin daily. There is no history of falls or injury. Does not use alcohol. No recent fevers. He states that he is cannot member whether he taken his medications today or not. He states he ate breakfast and upon returning home his fixed him a lunch. She eventually called EMS and he was transported here. Onset of symptoms were somewhere before 12:00 noon. complaint: confusion Timing confirmed by: spouse Associated symptoms: Deny depression Review of Systems Const: Denies: fever(s) or chills Eyes: Denies: change in vision ENMT: Denies: odynophagia, nasal discharge or nasal congestion Card: Denies: chest pain, palpitations, edema, syncope or pre-syncope Resp: Denies: dyspnea, productive cough or non-productive cough GI: Denies: abdominal pain, nausea, vomiting or hematemesis : Denies: flank pain, difficulty urinating, dysuria or urinary frequency Musc: Denies: neck pain, back pain, extremity pain or extremity swelling Skin/Breast: Denies: rash Neuro: Reports: confusion; Denies: headache(s), numbness in extremities or weakness in extremities Psych: Denies: anxiety or depression PFSH ED PFSH: Medical History CVA (cerebral vascular accident) History of 2019 novel coronavirus disease (COVID-19) History of hypertension History of nonmelanoma skin cancer History of therapeutic radiation Hx of atrial flutter Hx of schizophrenia Hypertension Surgical History History of tonsillectomy and adenoidectomy Hx of cataract extraction Hx of total knee replacement Status post right knee replacement Family History Mother Hypertension Father Cancer stomach Brother Lung disease Cancer Denies family history of Diabetes CAD (coronary artery disease) Clotting disorder Dementia Chronic kidney disease (CKD) Suicide Anesthesia complication Bleeding disorder Stroke Social History Smoking and tobacco status: former smoker Quit status (tobacco): has quit using tobacco Alcohol intake: former Desire information about alcohol rehabilitation?: No Counseling given: No Physical Exam Narrative: Patient is alert he does have some word finding difficulty but is eventually able to come into a complete and cogent answer. He is aware of his location and surroundings but again the answers are delayed. Const: COMMON NORMALS: average body habitus, patient oriented x3 and alert GENERAL APPEARANCE: cooperative and comfortable ORIENTATION/CONSCIOUSNESS: Yes oriented to person and Yes oriented to place HENMT: COMMON NORMALS: normocephalic, atraumatic, Normal nasal mucous membranes and turbinates present, moist oral mucous membranes and oropharynx normal HEAD & SCALP: normocephalic and atraumatic FACE & SINUS: face symmetric NOSE: Normal nasal mucous membranes and turbinates present Eye: COMMON NORMALS: Equal, round and reactive pupils present, EOMs intact bilaterally and conjunctivae normal CONJUNCTIVA: Yes conjunctivae normal PUPIL: Yes Equal, round and reactive pupils present Neck/C-Spine: COMMON NORMALS: full ROM, no lymphadenopathy, Thyroid normal and No carotid bruits THYROID: Thyroid normal Chest: COMMONS NORMALS: normal inspection of the chest and normal palpation of entire chest wall Resp: COMMON NORMALS: normal respiratory effort, No retractions, No use of accessory muscles and clear to auscultation bilaterally AUSCULTATION: clear to auscultation bilaterally Cardio: COMMON NORMALS: regular rate, regular rhythm, No murmurs present (Cardio) and Peripheral pulses 2+ throughout RATE: regular rate RHYTHM: regular rhythm PERIPHERAL PULSES: Peripheral pulses 2+ throughout GI: COMMON NORMALS: Normal to inspection, nondistended, normoactive bowel sounds present, Soft to palpation and non-tender PALPATION: Yes Soft to palpation : COMMON NORMALS: Yes no CVA tenderness BLADDER/KIDNEY EXAM: Yes no CVA tenderness Back/Pelvis: COMMON NORMALS: no CVA tenderness, thoracic and lumbar spine normal to inspection and no thoracic nor lumbar tenderness Extremity: COMMON NORMALS: normal to inspection, full ROM, capillary refill normal, no clubbing, cyanosis or edema, no calf tenderness and no pedal edema Neuro: FRENCH COMA SCALE: document GCS findings [place] coma scale eye opening: Spontaneous [place] coma scale verbal response: Orientated French coma scale motor response: Obey commands French coma scale total score: 15 COMMON NORMALS: patient oriented x3, moves all extremities, no focal motor deficits and no sensory deficits noted SENSORIUM/ORIENTATION: Yes alert, Yes oriented to person and Yes oriented to place CRANIAL NERVES: Yes CN normal except as noted SPEECH: speech normal OTHER: NIH is 15 at this time Psych: COMMON NORMALS: mental status grossly normal Skin: COMMON NORMALS: no rashes or lesions noted, no wounds and turgor normal GENERAL SKIN EXAM: no rashes or lesions noted and turgor normal Course Reevaluation(s): Reevaluation #1: Patient states he is feeling back to baseline at this point. He is states his thinking and mentation seem to be clear to him. He does answer questions in a more fluent and cogent fashion than previous without any issues of word finding. Initial CT scan, chest x-ray, other ancillary studies are reassuring at this time. Would seem that this patient may have had a resolved ischemic deficit. Review of his past studies reveal he has had echocardiogram within the last 2 years which showed no evidence of ASD etc. Time: 20:07 Reevaluation #2: Patient was ambulated about the emergency department did have some issues with clumsiness of his feet but abnormal gait which is new for him and this was collaborated with his via phone who states its not normal for him. Given this finding even though he had an improvement in his mentation and word finding think is reasonable for us to continue to keep him in observation begin him on a statin add aspirin at this time and keep him in observation for continued work-up. Again his presentation at this point does not suggest LVO requiring transfer and he presented with time 0 approximately 6 hours or greater time of arrivall combined with his low NIH and minimal deficits would not make him an eligible candidate for consideration for thrombolytic therapy at this time. This was reviewed and discussed with the patient who voiced understanding. Time: 21:22 Consultations: Consultation #1: Discussed with overnight hospitalist Dr. Moran this case who agreed to keep him for further work-up and evaluation. Time: 21:23 Vital Signs: Vital signs: Vital Signs Temperature 98.8 F 05/05/23 18:26 Pulse Rate 96 05/05/23 18:26 Respiratory Rate 16 05/05/23 18:26 Blood Pressure 131/85 05/05/23 18:26 Pulse Oximetry 92 05/05/23 18:26 Oxygen Delivery Me thod Room Air 05/05/23 18:26 MDM - Altered Mental Status Medical Decision Making This patient presented to our emergency department via EMS for concerns about feeling off. Apparently this began approximately noon today when it was noted that he had some difficulty driving on the highway and by his own admission and by history obtained from EMS was weaving between the lines. This was noted by his who he was driving home from her eye doctor appointment. They made their way back to their home and he proceeded to eat lunch and continue to have the subjective feelings of feeling off. His eventually called EMS and they made their way to the emergency department. At the time of arrival at the emergency department he was greater than 6 hours after the onset of symptoms. Initial clinical evaluation revealed an NIH of perhaps 1 with the only deficit being in slowness of word finding but he displayed no aphasia or true dysarthria. There was no focal weakness or cerebellar dysfunction on initial evaluation. Work-up ensued to include CT scan and typical laboratories and other ancillary studies. Noncontrast CT was reassuring and as labs returned the patient stated subjectively he felt at his baseline and he did not exhibit any word finding difficulties upon repeat interviewing. He was allowed to ambulate about the emergency department and was noted he had somewhat of a shuffling or abnormal gait for him. This is collaborated by . Based on this finding was felt that the patient had not completely resolved his potential cerebral ischemia. It was discussed with the nighttime hospitalist and we proceeded to start him on a statin, aspirin given the fact that he had no evidence of hemorrhage on CT scan and plan for additional work-up at this time. Again no not a candidate for thrombolytic therapy or endovascular retrieval at this time based upon his current presentation. Medical Records I reviewed the patient's medical records. Lab Data I reviewed the patient's lab results. Previous echocardiogram approximately 2 years ago that showed no structural heart abnormalities. 05/05/23 18:49 05/05/23 18:[address] 05/05/23 18:32 IMPRESSION: 1. No acute intracranial abnormality. ASSESSMENT: ASPECTS ([place] Stroke Program Early CT Score) is 10. Chest X-Ray 05/05/23 18:33 IMPRESSION: No acute findings. Laboratory Results WBC 9.36 10^3/uL (3.29-11.43) 05/05/23 18:49 RBC 4.55 10^6/uL (3.85-5.65) 05/05/23 18:49 Hgb 13.60 g/dL (11.27-16.99) 05/05/23 18:49 Hct 41.1 % (37-53) 05/05/23 18:49 MCV 90.3 fl (82-101) 05/05/23 18:49 MCH 29.9 pg (27-33) 05/05/23 18:49 MCHC 33.1 g/dL (30-55) 05/05/23 18:49 RDW 14.6 % (12.1-15.1) 05/05/23 18:49 Plt Count 189 10^3/cmm (157-399) 05/05/23 18:49 MPV 10.3 fL (7.4-10.4) 05/05/23 18:49 Neut % (Auto) 70.3 % 05/05/23 18:49 Lymph % (Auto) 10.5 % 05/05/23 18:49 Jerauld % (Auto) 17.0 % 05/05/23 18:49 Eos % (Auto) 0.4 % 05/05/23 18:49 Baso % (Auto) 0.7 % 05/05/23 18:49 Neut # (Auto) 6.58 10^3/uL (1.8-7.7) 05/05/23 18:49 Lymph # (Auto) 1.0 10^3/uL (0.8-4.8) 05/05/23 18:49 Jerauld # (Auto) 1.6 10^3/uL (0.2-0.9) H 05/05/23 18:49 Eos # (Auto) 0.0 10^3/uL (0.0-0.8) 05/05/23 18:49 Baso # (Auto) 0.1 10^3/uL (0.0-0.1) 05/05/23 18:49 Nucleated RBC % (auto) 0 % 05/05/23 18:49 Nucleated RBCs # 0.0 /100WBC 05/05/23 18:49 ESR 11 mm/hr (0-10) H 05/05/23 18:49 PT 23.40 SECONDS (12.1-14.9) H 05/05/23 18:49 INR 2.00 (0.8-1.2) H 05/05/23 18:49 APTT 47.5 SECONDS (23.9-36.7) H 05/05/23 18:49 Sodium 135 mmol/L (136-145) L 05/05/23 18:49 Potassium 4.0 mmol/L (3.5-5.1) 05/05/23 18:49 Chloride 100 mmol/L (98-107) 05/05/23 18:49 Carbon Dioxide 24 mmol/L (22-29) 05/05/23 18:49 Anion Gap 15.0 (5-19) 05/05/23 18:49 BUN 12 mg/dL (8-23) 05/05/23 18:49 Creatinine 1.1 mg/dL (0.7-1.2) 05/05/23 18:49 GFR Calculation Not Reportable 05/05/23 18:49 Glucose 102 mg/dL (65-115) 05/05/23 18:49 Calculated Osmolality 280 mOsm/kg (285-295) L 05/05/23 18:49 Calcium 8.6 mg/dL (8.5-10.5) 05/05/23 18:49 Total Bilirubin 0.4 mg/dL (0.15-1.2) 05/05/23 18:49 AST 16 U/L (0-40) 05/05/23 18:49 ALT 15 U/L (0-41) 05/05/23 18:49 Alkaline Phosphatase 55 U/L (40-130) 05/05/23 18:49 Total Protein 7.1 g/dL (6.6-8.7) 05/05/23 18:49 Albumin 4.0 g/dL (3.5-5.2) 05/05/23 18:49 Globulin 3.1 g/dL (1.3-4.6) 05/05/23 18:49 Urine Color Yellow (Yellow) 05/05/23 19:55 Urine Appearance Clear (CLEAR) 05/05/23 19:55 Urine pH 7 (5-7) 05/05/23 19:55 Ur Specific Sultan 1.005 (1.005-1.030) 05/05/23 19:55 Urine Protein Neg (Negative) 05/05/23 19:55 Urine Glucose (UA) Norm (Normal) 05/05/23 19:55 Urine Ketones Negative (Negative) 05/05/23 19:55 Urine Blood Neg (Negative) 05/05/23 19:55 Urine Nitrate Negative (Negative) 05/05/23 19:55 Urine Bilirubin Neg (Negative) 05/05/23 19:55 Urine Urobilinogen Norm mg/dL (Negative) 05/05/23 19:55 Ur Leukocyte Esterase Negative (Negative) 05/05/23 19:55 EKG Data EKG 1: I personally reviewed and interpreted this EKG as follows: Interpretation: Contemporaneous review of his EKG reveals atrial fibrillation with a ventricular response of 107 bpm. QRS durations normal, corrected QT intervals normal no acute ST-T wave changes noted. He does have an occasional ventricular premature contraction. Discharge Plan Discharge Patient Disposition: Placed in Observation Clinical Impression: Atrial fibrillation, CVA (cerebral vascular accident) Condition: Stable Prescriptions: No Action haloperidol 2 mg tablet 2.5 mg PO DAILY amlodipine 5 mg tablet 5 mg PO DAILY saw palmetto 450 mg capsule 450 mg PO DAILY Rx Instructions: give with food (meal/snack) benztropine 2 mg tablet 2 mg PO DAILY warfarin 5 mg tablet 5 mg PO DAILY Qty: 30 0RF Rx Instructions: STOP ASPIRIN AFTER 4 DAYS OF COUMADIN losartan 25 mg tablet See Rx Instructions .ROUTE .COMPLEX Qty: 90 3RF Dose Instruction: TAKE 1 TABLET BY MOUTH DAILY Rx Instructions: TAKE 1 TABLET BY MOUTH DAILY furosemide 20 mg tablet 20 mg PO DAILY Qty: 90 3RF potassium chloride 8 mEq tablet extended release 8 meq PO DAILY Qty: 90 3RF Referrals: Landon Ga [Primary Care Provider] - Patient Instructions: Hyponatremia (ED), Benzodiazepine Use Disorder (ED), Dementia (ED), Non-diabetic Hypoglycemia (ED), Hypoglycemia in a Person with Diabetes (ED), Concussion (ED), Alcohol Intoxication (ED), Subarachnoid Hemorrhage (GEN), Altered Mental Status (ED) Coding Level of Care Code ED Label Printing Machinist for Yaima Jim
[2023-05-05 18:58] LABS: Basophils # 0.1 10^3/uL (0.0-0.1); Basophils % 0.7 %; Eosinophils % 0.4 %; Hematocrit 41.1 % (37-53); Lymphocytes % 10.5 %; Mean Corpuscular HGB Conc 33.1 g/dL (30-55); Mean Corpuscular Hemoglobin 29.9 pg (27-33); Mean Corpuscular Volume 90.3 fl (82-101); Mean Platelet Volume 10.3 fL (7.4-10.4); Monocytes # 1.6 10^3/uL (0.2-0.9); Neutrophils # 6.58 10^3/uL (1.8-7.7); Neutrophils % 70.3 %; Nucleated Red Blood Cells % 0 %; Platelet Count 189 10^3/cmm (157-399); Red Blood Count 4.55 10^6/uL (3.85-5.65); Red Cell Distribution Width 14.6 % (12.1-15.1); White Blood Count 9.36 10^3/uL (3.29-11.43)
--- NOTE | 2023-05-05 19:05 | ECG_ITS ---
[facility] Test Date: 2023-05-05 Pat Name: Gwyn Sharif Department: Room: Gender: Male Brand Communications Manager: : 1945 Requested By: Noe Anderson Order Number: [id number] Lock MD: Abdiaziz Martin M.D. Measurements Intervals [place] Rate: 107 P: 0 SD: 0 QRS: 9 QRSD: 94 T: 33 QT: 339 QTc: 453 Interpretive Statements ATRIAL FIBRILLATION WITH RAPID VENTRICULAR RESPONSE WITH ABERRANT CONDUCTION OR VENTRICULAR PREMATURE COMPLEXES ABNORMAL RHYTHM ECG Compared to ECG 04/13/2023 14:50:23 Ventricular premature complex(es) now present Aberrant conduction of supraventricular beat(s) now present Electronically Signed On 05-06-2023 20:31:23 CDT by Abdiaziz Martin M.D. [id number]
[2023-05-05 19:15] LABS: Partial Thromboplastin Time 47.5 SECONDS (23.9-36.7)
[2023-05-05 19:22] LABS: Alanine Aminotransferase 15 U/L (0-41); Alkaline Phosphatase 55 U/L (40-130); Aspartate Amino Transferase 16 U/L (0-40); Blood Urea Nitrogen 12 mg/dL (8-23); Calcium 8.6 mg/dL (8.5-10.5); Carbon Dioxide 24 mmol/L (22-29); Chloride 100 mmol/L (98-107); Globulin 3.1 g/dL (1.3-4.6); Glucose 102 mg/dL (65-115); Osmolality Calculated 280 mOsm/kg (285-295); Sodium 135 mmol/L (136-145); Total Bilirubin 0.4 mg/dL (0.15-1.2); Total Protein 7.1 g/dL (6.6-8.7)
[2023-05-05 20:04] LABS: Add Urine Microscopic? NO; Charge for UA Resulting for Rev
[2023-05-05 20:09] LABS: Bilirubin Urine Neg (Negative); Blood Urine Neg (Negative); Glucose Urine UA Norm (Normal); Ketones Urine Negative (Negative); Leukocyte Esterase Urine Negative (Negative); Nitrate Urine Negative (Negative); Protein Urine Neg (Negative); Specific Gravity, Urine 1.005 (1.005-1.030); Urine Appearance Clear (CLEAR); Urine Color Yellow (Yellow); Urobilinogen Urine Norm (Negative); pH Urine 7 (5-7)
[2023-05-05 20:13] LABS: Erythrocyte Sedimentation Rate 11 mm/hr (0-10)
[2023-05-05 21:45] VITALS: PULSE 100; RESP 16; O2SAT 96
[2023-05-05] MEDS: atorvastatin 40 mg Tablet PO (21:45)
[2023-05-05] MEDS: aspirin 81 mg Chew Tablet 324 MG PO (21:46)
[2023-05-05 21:47] VITALS: BP 126/83
[2023-05-05 21:51] LABS: Glucose Point of Care 102 mg/dL (70-110)
[2023-05-05 22:00] VITALS: PULSE 84
--- NOTE | 2023-05-05 22:38 | P.HP_ITS ---
Providers/Chief Complaint Admitting Physician: Brooks Desouza Primary Care Provider: Landon Ga Chief Complaint: AMS History of Present Illness Pleasant 77-year-old gentleman with history of atrial flutter, on warfarin, history of suspected possible CVA as per patient he states was suspected by [email or web address] interface developer after eye exam with visual field deficits, HTN, former smoker, this afternoon was taking his to see a doctor, on the return trip was having difficulty driving, weaving [id number], on assessment in ER was found to have some mild aphasia, CT head unremarkable, was outside the window for tPA, also anticoagulated with warfarin, INR 2, subsequently aphasia appears to have improved, but also noticed some ataxia with attempted ambulation. Review of Systems Const: Denies: fever(s), chills, body aches or malaise ENMT: Denies: throat pain Card: Denies: chest pain, edema, pre-syncope or dyspnea on exertion Resp: Denies: dyspnea, productive cough, change in phlegm color or hemoptysis GI: Denies: abdominal pain, nausea, vomiting, diarrhea, constipation, h ematochezia or melena : Denies: flank pain, difficulty urinating, urinary frequency or hematuria Musc: Denies: back pain, joint swelling or joint redness Skin/Breast: Denies: rash or new lesions Neuro: Reports: lack of coordination, difficulty walking and difficulty communicating thoughts; Denies: headache(s), numbness in extremities, weakness in extremities, dizziness, vertigo, confusion or seizure-like activity Medications/Allergies Home Medications Medication Instructions Recorded Confirmed Last Taken Type amlodipine 5 mg tablet 5 mg PO DAILY 08/07/20 09/24/22 03/11/21 History haloperidol 2 mg tablet 2.5 mg PO DAILY 08/07/20 10/01/22 03/10/21 History saw palmetto 450 mg capsule 450 mg PO DAILY 10/12/20 10/01/22 03/10/21 History benztropine 2 mg tablet 2 mg PO DAILY 07/02/21 10/01/22 Unknown History warfarin 5 mg tablet 5 mg PO DAILY #30 tabs 12/31/21 10/01/22 Unknown Rx losartan 25 mg tablet See Rx Instructions .Route 10/10/22 Unknown Rx .COMPLEX #90 tabs furosemide 20 mg tablet 20 mg PO DAILY #90 tabs 04/29/23 Unknown Rx potassium chloride 8 mEq 8 meq PO DAILY #90 tabs 04/29/23 Unknown Rx tablet,extended release Allergies Allergy/AdvReac Type Severity Reaction Status Date / Time Penicillins Allergy Unknown Verified 04/13/23 14:04 PFSH Acute PFSH: Medical History CVA (cerebral vascular accident) History of 2019 novel coronavirus disease (COVID-19) History of hypertension History of nonmelanoma skin cancer History of therapeutic radiation Hx of atrial flutter Hx of schizophrenia Hypertension Surgical History History of tonsillectomy and adenoidectomy Hx of cataract extraction Hx of total knee replacement Status post right knee replacement Family History Mother Hypertension Father Cancer stomach Brother Lung disease Cancer Denies family history of Diabetes CAD (coronary artery disease) Clotting disorder Dementia Chronic kidney disease (CKD) Suicide Anesthesia complication Bleeding disorder Stroke Social History Smoking and tobacco status: former smoker Quit status (tobacco): has quit using tobacco Alcohol intake: former Desire information about alcohol rehabilitation?: No Counseling given: No Vitals/I&O/Wt Last Vital Signs Temp 98.8 F 05/05/23 18:26 Pulse 100 05/05/23 21:45 Resp 16 05/05/23 21:45 BP 126/83 05/05/23 21:47 Pulse Ox 96 05/05/23 21:45 O2 Del Method Room Air 05/05/23 18:26 Weight last 48 hrs Weight 92.986 kg Physical Exam Const: COMMON NORMALS: patient oriented x3 and alert GENERAL APPEARANCE: cooperative ORIENTATION/CONSCIOUSNESS: Yes awake HENMT: COMMON NORMALS: oropharynx normal Neck/C-Spine: COMMON NORMALS: no JVD Resp: COMMON NORMALS: normal respiratory effort and clear to auscultation bilaterally AUSCULTATION: clear to auscultation bilaterally Cardio: COMMON NORMALS: no JVD, regular rhythm, S1 normal heart sound present, S2 normal heart sound present and No murmurs present (Cardio) RHYTHM: regular rhythm HEART SOUNDS: S1 normal heart sound present and S2 normal heart sound present GI: COMMON NORMALS: Normal to inspection, nondistended, normoactive bowel sounds present, Soft to palpation and non-tender PALPATION: Yes Soft to palpation Extremity: COMMON NORMALS: no joint enlargement and no pedal edema Neuro: COMMON NORMALS: patient oriented x3 and moves all extremities SENSORIUM/ORIENTATION: Yes alert OTHER: He is awake, alert, readily cooperative, no difficulty following directions. Do not appreciate facial droop. Minimal if any aphasia. No difficulty tracking. Visual cheema full to confrontation. No visual extinction. FNF WNL. No upper or lower extremity drift. Sensation symmetrical. No sensory extinction. Skin: COMMON NORMALS: no rashes or lesions noted GENERAL SKIN EXAM: no rashes or lesions noted Data 05/05/23 18:49 05/05/23 18:49 A&P Assessment and plan (1) CVA (cerebral vascular accident): Possible TIA versus possible CVA, mostly symptoms seem to have resolved, initia lly with aphasia, although on attempt to ambulate noted with ataxia. In ER received aspirin. Continue. Continue warfarin for atrial flutter. Discussed with him starting a statin. Obtain MRI for additional assessment with concern for possible posterior circulation CVA. At this time permissive hypertension and if confirmed posterior CVA consider hospitalization for several days to avoid rapid decreases in blood pressure. For now we will continue some gentle IV hydration. We will obtain carotid duplex, bubble study TTE. Consider A1c at DC. PT, OT, ST assessment. Please arrange follow-up with neurology within a week. Otherwise he is afebrile, CBC unremarkable, minute hyponatremia 135, not likely responsible for her symptoms. UA unremarkable. Please review medication list once available, consider contribution of 1 or several of his medications. Discussed with ER physician. ER documentation reviewed. Plan HTN: Permissive hypertension for now. Hold antihypertensives. Monitor blood pressure. Atrial flutter: Continue warfarin, monitor heart rate. On my review of EKG appears to be in atrial fibrillation with controlled ventricular response, heart rate 107. Monitor heart rate, consider addition of rate control agents cautiously given does appear to have some heart rates down as low as the 50s previously. Cardiac monitoring. Schizophrenia: Haloperidol Requesting to list home medications, please review and reconcile once available. Attestations Medical Necessity Statement*: Place in observation for additional assessment management of possible TIA versus CVA, possibly posterior circulation. Diagnoses CVA (cerebral vascular accident) I63.9
[2023-05-05 22:51] VITALS: BP 123/89; PULSE 70; RESP 17; TEMP 37.3; O2SAT 92
--- NOTE | 2023-05-05 23:07 | PC.NURSE ---
Patient states that his list of home medications is at home. Patient states he uses [facility] pharmacy in [place].
[2023-05-06] VITALS: BP 135/91; PULSE 86; RESP 15; TEMP 36.9; O2SAT 92
[2023-05-06] MEDS: lactated ringers 1,000 ML 30 ML IV (00:12)
[2023-05-06] MEDS: heparin 5,000 unit/mL INJ 1 mL 5000 UNIT SUBCUT (00:13)
[2023-05-06 03:54] VITALS: BP 130/82; PULSE 100; RESP 15; TEMP 36.8; O2SAT 90
[2023-05-06 05:32] VITALS: PULSE 105
[2023-05-06 08:00] VITALS: BP 128/85; PULSE 103; RESP 16; TEMP 38; O2SAT 92
[2023-05-06] MEDS: aspirin 81 mg EC Tablet 162 MG PO (08:14)
[2023-05-06] MEDS: haloperidol 5 mg Tablet 2.5 MG PO (08:15)
--- NOTE | 2023-05-06 10:42 | PC.CHAP ---
Pastoral Care Encounter/Spiritual Assessment Type of Contact [] Declined histological illustrator visit [] Patient/Family/Request visit [] Outpatient visit [] Follow-up visit [] Physician referral [] Code/Alert [x] Routine visit [] Staff referral [] Actively dying [] Patient sleeping [] Family support [] [] Out of room [] Palliative care [] [] Receiving care in room [] Pre-surgical visit [] Trauma [] Long length of stay [] ICU visit [] Other: Relational/Emotional Strength [x] Patient feels connected with others/family/visitors/staff [] Distress [] Loneliness/isolation [] Abandonment Spirituality of Patient [] Person of Melania [] Attends Orthodox of their Melania [] Believes in Prayer [] Reads Bible or Hoahaoism materials [] There are Spiritual issues to be addressed Mail Delivery Supervisor Interventions [x] Prayer [] Active listening [x] Non-anxious presence [] Spiritual/emotional support [] Crisis/trauma care [] Spiritual counseling [] Bereavement support [] Provided bereavement packet [] Provided Bible/devotional materials [] Provided toy/stuffed animal, coloring book to patient or family member [] Provided Communion [] Anointing/[place] [] Salvation [x] Completed spiritual assessment [] Other: Impact on Illness or Injury [] Angry [] Fearful [] Anxious [] Often cries [] Exhaustion [] Unable to work [] Unable to attend anglican [] Unable to walk/stand [] Unable to read [] Unable to drive [] Unable to eat/drink [] Unable to sleep [] Unable to be with family [] Patient intubated [] Other: Summary Time spent with patient 5 minn
[2023-05-06 12:00] VITALS: BP 147/85; PULSE 105; RESP 17; TEMP 36.4; O2SAT 96
--- NOTE | 2023-05-06 14:35 | PM.DCS ---
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 Patient was admitted to [facility] for concerns for acute CVA, head CT no acute findings, MRI of the brain showed ?Remote RIGHT posterior parietal lobe parafalcine infarct, allowed for permissive hypertension, received aspirin, statin, resuming home Coumadin, PT OT, speech therapy eval as inpatient. On the morning of 05/06/2023 patient was alert and awake, following all commands, no significant productive aphasia and no receptive aphasia no balance difficulties he actually ambulated to the nurses station outside his room without any difficulty, no focal weakness, no focal neurologic deficits, no focal paresthesias, no facial droop, I have strongly recommended for him to be monitored another 24 hours as inpatient for permissive hypertension and monitoring after his stroke however patient was adamant about discharge home. I am willing to discharge him on aspirin, statin, with his home Coumadin with a follow-up with Dr. Mckeon on the for recheck of his INR. I have recommended for permissive hypertension for another 24 hours to resume his blood pressure medications tomorrow. If he were to have any recurrent strokelike symptoms to please call 911. On examination he does have a resting tremor in both of his upper extremities, I am wondering if he has a component of Parkinson's disease, I am going to refer him to Dr. West for further evaluation. I have gone over his discharge instructions in detail with patient, and also with his , who is also a nurse. I also had discussion with patient and his about his echocardiogram findings, his EF is borderline low at 50 to 55%, he also has some inferior wall hypokinesis, he denies any chest pain, nonetheless he needs to follow-up with Dr. Martin, he is on aspirin, statin, if he were to have any chest pain to go to the emergency room Physical Exam Const: COMMON NORMALS: no acute distress and patient oriented x3 HENMT: COMMON NORMALS: normocephalic HEAD & SCALP: normocephalic Neck/C-Spine: COMMON NORMALS: no JVD Resp: COMMON NORMALS: normal respiratory effort, No retractions, No use of accessory muscles and clear to auscultation bilaterally AUSCULTATION: clear to auscultation bilaterally Cardio: COMMON NORMALS: no JVD, regular rate, regular rhythm, S1 normal heart sound present and S2 normal heart sound present RATE: regular rate RHYTHM: regular rhythm HEART SOUNDS: S1 normal heart sound present and S2 normal heart sound present GI: COMMON NORMALS: Normal to inspection, nondistended, normoactive bowel sounds present, Soft to palpation, non-tender, no masses and no bruits PALPATION: Yes Soft to palpation Extremity: COMMON NORMALS: no pedal edema Neuro: COMMON NORMALS: patient oriented x3, CN's II-XII intact bilaterally, moves all extremities and no focal motor deficits Psych: COMMON NORMALS: mental status grossly normal Discharge Data Studies Completed and Pending Completed Studies During Hospitalization Category Date Time Status CT head thrombolytic [id number] Stat Cat Scan 05/05/23 18:32 Completed XR chest 1V portable [id number] Stat Exams 05/05/23 18:33 Completed MR head wo con* [id number] Routine MRI 05/06/23 23:53 Completed Pending at discharge Category Date Time Status CV. echo lmt wo/w bubble [id number] Routine Ultrasound 05/06/23 23:53 Taken Radiology Impressions Head CT 05/05/23 18:32 IMPRESSION: 1. No acute intracranial abnormality. ASSESSMENT: ASPECTS ([place] Stroke Program Early CT Score) is 10. Chest X-Ray 05/05/23 18:33 IMPRESSION: No acute findings. Laboratory Results WBC 9.36 10^3/uL (3.29-11.43) 05/05/23 18:49 RBC 4.55 10^6/uL (3.85-5.65) 05/05/23 18:49 Hgb 13.60 g/dL (11.27-16.99) 05/05/23 18:49 Hct 41.1 % (37-53) 05/05/23 18:49 MCV 90.3 fl (82-101) 05/05/23 18:49 MCH 29.9 pg (27-33) 05/05/23 18:49 MCHC 33.1 g/dL (30-55) 05/05/23 18:49 RDW 14.6 % (12.1-15.1) 05/05/23 18:49 Plt Count 189 10^3/cmm (157-399) 05/05/23 18:49 MPV 10.3 fL (7.4-10.4) 05/05/23 18:49 Neut % (Auto) 70.3 % 05/05/23 18:49 Lymph % (Auto) 10.5 % 05/05/23 18:49 [place] % (Auto) 17.0 % 05/05/23 18:49 Eos % (Auto) 0.4 % 05/05/23 18:49 Baso % (Auto) 0.7 % 05/05/23 18:49 Neut # (Auto) 6.58 10^3/uL (1.8-7.7) 05/05/23 18:49 Lymph # (Auto) 1.0 10^3/uL (0.8-4.8) 05/05/23 18:49 [place] # (Auto) 1.6 10^3/uL (0.2-0.9) H 05/05/23 18:49 Eos # (Auto) 0.0 10^3/uL (0.0-0.8) 05/05/23 18:49 Baso # (Auto) 0.1 10^3/uL (0.0-0.1) 05/05/23 18:49 Nucleated RBC % (auto) 0 % 05/05/23 18:49 Nucleated RBCs # 0.0 /100WBC 05/05/23 18:49 ESR 11 mm/hr (0-10) H 05/05/23 18:49 PT 23.40 SECONDS (12.1-14.9) H 05/05/23 18:49 INR 2.00 (0.8-1.2) H 05/05/23 18:49 APTT 47.5 SECONDS (23.9-36.7) H 05/05/23 18:49 Sodium 135 mmol/L (136-145) L 05/05/23 18:49 Potassium 4.0 mmol/L (3.5-5.1) 05/05/23 18:49 Chloride 100 mmol/L (98-107) 05/05/23 18:49 Carbon Dioxide 24 mmol/L (22-29) 05/05/23 18:49 Anion Gap 15.0 (5-19) 05/05/23 18:49 BUN 12 mg/dL (8-23) 05/05/23 18:49 Creatinine 1.1 mg/dL (0.7-1.2) 05/05/23 18:49 GFR Calculation Not Reportable 05/05/23 18:49 Glucose 102 mg/dL (65-115) 05/05/23 18:49 POC Glucose 102 mg/dL (70-110) 05/05/23 21:48 Calculated Osmolality 280 mOsm/kg (285-295) L 05/05/23 18:49 Calcium 8.6 mg/dL (8.5-10.5) 05/05/23 18:49 Total Bilirubin 0.4 mg/dL (0.15-1.2) 05/05/23 18:49 AST 16 U/L (0-40) 05/05/23 18:49 ALT 15 U/L (0-41) 05/05/23 18:49 Alkaline Phosphatase 55 U/L (40-130) 05/05/23 18:49 Total Protein 7.1 g/dL (6.6-8.7) 05/05/23 18:49 Albumin 4.0 g/dL (3.5-5.2) 05/05/23 18:49 Globulin 3.1 g/dL (1.3-4.6) 05/05/23 18:49 Urine Color Yellow (Yellow) 05/05/23 19:55 Urine Appearance Clear (CLEAR) 05/05/23 19:55 Urine pH 7 (5-7) 05/05/23 19:55 Ur Specific [place] 1.005 (1.005-1.030) 05/05/23 19:55 Urine Protein Neg (Negative) 05/05/23 19:55 Urine Glucose (UA) Norm (Normal) 05/05/23 19:55 Urine Ketones Negative (Negative) 05/05/23 19:55 Urine Blood Neg (Negative) 05/05/23 19:55 Urine Nitrate Negative (Negative) 05/05/23 19:55 Urine Bilirubin Neg (Negative) 05/05/23 19:55 Urine Urobilinogen Norm mg/dL (Negative) 05/05/23 19:55 Ur Leukocyte Esterase Negative (Negative) 05/05/23 19:55 Vitals Last Vital Signs Temp 97.6 F 05/06/23 12:00 Pulse 105 H 05/06/23 12:00 Resp 17 05/06/23 12:00 BP 147/85 05/06/23 12:00 Pulse Ox 96 05/06/23 12:00 O2 Del Method Room Air 05/06/23 03:54 Discharge Plan Discharge Patient Disposition: Home Condition: Stable Prescriptions: New aspirin 81 mg Tablet,Delayed Release (Dr/Ec) 81 mg PO DAILY 30 Days Qty: 30 0RF atorvastatin 40 mg Tablet 40 mg PO BEDTIME 30 Days Qty: 30 0RF Continued haloperidol 2 mg tablet 2.5 mg PO DAILY amlodipine 5 mg tablet 5 mg PO DAILY saw palmetto 450 mg capsule 450 mg PO DAILY Rx Instructions: give with food (meal/snack) benztropine 2 mg tablet 2 mg PO DAILY furosemide 20 mg tablet 20 mg PO DAILY Qty: 90 3RF potassium chloride 8 mEq tablet extended release 8 meq PO DAILY Qty: 90 3RF losartan 25 mg tablet 25 mg PO DAILY warfarin 5 mg tablet 5 mg PO DAILY 30 Days Qty: 30 0RF Discharge Orders: Discharge Order (Routine); Ordered 05/06/23 Ordered By: Carloz Tello Referrals: Lilliana West MD [Physician] - 2 weeks Abdiaziz Martin MD [Physician] - 1-3 days Landon Ga [Primary Care Provider] - 05/08/23 10:00 am Discharge Diet: Cardiac Discharge Activity: Resume usual activity Patient Instructions: Ischemic Stroke (DC) Activity Restrictions/Additional Instructions: -if you have any recurrent stroke like symptoms please call 911 -see our primary care in 48h for blood pressure check -have our primary care recheck inr on 05/08 Discharge Attestations Time Spent in Discharge Care*: greater than 30 min Quality Metrics Clinical Quality Measures [ Cerebrovascular Accident { Contraindication to Antithrombotic: None; antithrombotic prescribed; Contraindication to Anticoagulation: None; anticoagulation prescribed; Contraindication to Statin: None; Statin prescribed;}] Coding Level of Care Code 14691 Total time (in minutes) for Discharge: 50 Diagnoses CVA (cerebral vascular accident) I63.9
--- NOTE | 2023-05-06 23:53 | USCV_ITS ---
Gwyn Sharif Age: 77 Gender: M : 1945 Exam Date: 05/06/2023 07:10 Ordering Phys: Brooks Desouza MD Technologist: CT Exam Location: [facility] [place] Indication: bubble study BP: / HR: Rhythm: Sinus Technical Quality: MEASUREMENTS (Male / Female) Normal Values FINDINGS Left Ventricle Right Ventricle Right Atrium Left Atrium Mitral Valve Aortic Valve Tricuspid Valve Pulmonic Valve Pericardium Aorta IVC CONCLUSIONS Grossly LV systolic function is mildly reduced. Bubble study does not show [id number] intracardiac shunt. Glen Bose MD (Electronically Signed) Final Date: 06 May 2023 17:47 S
--- NOTE | 2023-05-06 23:53 | MR_ITS ---
WS: [id number] MRI BRAIN WITHOUT CONTRAST HISTORY: TIA vs CVA COMPARISON: Noncontrast CT head 05/05/2023. TECHNIQUE: Diffusion imaging, multiplanar T1, T2 and FLAIR imaging obtained. No evidence for acute infarct or hemorrhage. [place]-white matter differentiation is normal. Moderate atrophy is symmetric bilaterally. Remote RIGHT parietal parafalcine infarct. There is additi onal scattered T2 and FLAIR signal hyperintensities from small vessel ischemic disease. More focal vo lume loss posterior LEFT parietal occipital parafalcine location. Mild prominence of the ventricles and extra-axial spaces on the basis of atrophy. No inferior displacement of cerebellar tonsils. The sella turcica and pituitary gland are unremarkabl e. Dural venous sinuses and [place] of [place] demonstrate no abnormality on this unenhanced studies. Paranasal sinuses: Mild mucoperiosteal thickening throughout the maxillary sinuses. No air-fluid leve ls. Mastoid air cells: Normal. Calvarium and scalp: Intact. IMPRESSION: 1. No acute infarct or diffusion abnormality. 2. Remote RIGHT posterior parietal lobe parafalcine infarct. 3. Moderate atrophy and small vessel ischemic disease. No acute hemorrhage.
== END 2023-05-06 15:43 | disposition home or self-care (01) ==
LOC: ER 21:27 → MEDSURG 22:13
PROVIDERS: Admitting Provider Internal Medicine; Emergency Provider Emergency Medicine; PCP Family Medicine; Visit Provider Family Medicine
DX: I63.9 Cerebral infarction, unspecified (principal); I10 Essential (primary) hypertension; F20.9 Schizophrenia, unspecified; Z87.891 Personal history of nicotine dependence; Z79.01 Long term (current) use of anticoagulants
CPT/HCPCS: 36415; 36416; 70450; 70551; 71045; 80053; 81003; 82962; 85025; 85610; 85651; 85730; 92523; 92610; 93005; 96372; 97110; 97161; 97165; 99285; C8924; G0378; J1644; J7120

== ENCOUNTER → 2023-05-12 10:06 | Outpatient (BNVA) | payer MEDICARE, SELFPAY | PROVIDERS: PCP Family Medicine; Visit Provider Nurse Practitioner Family | DX: I25.5 Ischemic cardiomyopathy (principal); I10 Essential (primary) hypertension; I48.91 Unspecified atrial fibrillation; Z79.01 Long term (current) use of anticoagulants; Z87.891 Personal history of nicotine dependence; Z86.79 Personal history of other diseases of the circulatory system | CPT/HCPCS: 36415; 80048; 83880; 99214 ==

== ENCOUNTER → 2023-07-27 13:28 | Outpatient (BNVA) | payer MEDICARE, SELFPAY | PROVIDERS: PCP Family Medicine; Visit Provider Dermatology | DX: L57.0 Actinic keratosis (principal); L82.1 Other seborrheic keratosis; L57.8 Other skin changes due to chronic exposure to nonionizing radiation; L81.4 Other melanin hyperpigmentation; Z85.828 Personal history of other malignant neoplasm of skin | CPT/HCPCS: 17004; 99213 ==

== ENCOUNTER → 2023-11-04 11:05 | Outpatient (BNVA) | payer MEDICARE, SELFPAY | PROVIDERS: PCP Family Medicine; Visit Provider Nurse Practitioner Family | DX: I10 Essential (primary) hypertension (principal); Z87.891 Personal history of nicotine dependence; I48.92 Unspecified atrial flutter; Z79.01 Long term (current) use of anticoagulants | CPT/HCPCS: 99214 ==

== ENCOUNTER → 2023-12-14 14:59 | Outpatient (BNVA) | payer MEDICARE, SELFPAY | PROVIDERS: PCP Family Medicine; Visit Provider Dermatology | DX: L82.1 Other seborrheic keratosis (principal); L57.8 Other skin changes due to chronic exposure to nonionizing radiation; L81.4 Other melanin hyperpigmentation; L57.0 Actinic keratosis; Z85.828 Personal history of other malignant neoplasm of skin; Z92.3 Personal history of irradiation | CPT/HCPCS: 17000; 99213 ==

== ENCOUNTER → 2024-05-24 14:04 | Outpatient (BNVA) | payer MEDICARE, SELFPAY | PROVIDERS: PCP Family Medicine; Visit Provider Dermatology | DX: L57.0 Actinic keratosis (principal); L82.1 Other seborrheic keratosis; T63.441A Toxic effect of venom of bees, accidental (unintentional), initial encounter; X58.XXXA Exposure to other specified factors, initial encounter; L57.8 Other skin changes due to chronic exposure to nonionizing radiation; L21.8 Other seborrheic dermatitis; Z85.828 Personal history of other malignant neoplasm of skin; Z92.3 Personal history of irradiation | CPT/HCPCS: 17004; 99214 ==

== ENCOUNTER 2024-06-08 12:27 | Outpatient (CLI) | payer MEDICARE, SELFPAY ==
--- NOTE | 2024-06-08 12:33 | CT_ITS ---
WS: [id number] CT NECK TECHNIQUE: Contrast-enhanced CT of the neck with coronal and sagittal reformatted images. CLINICAL INFORMATION: MALIGNANT NEOPLASM OF SKIN COMPARISON: CT neck 10/15/2022 DLP: 2462.[address] scans at [facility] use at least one of these dose optimization techniques: automated e xposure control; mA and/or kV adjustment per patient size (includes targeted exams where dose is matc hed to clinical indication); or iterative reconstruction. FINDINGS: Dental artifact degrades some images. Mild soft tissue induration about the mandible and anterior face compatible with radiation therapy. N o enhancing solid lesions. No evidence of metastatic disease in the neck. Normal parotid glands. RIGHT intraparotid lymph node. Normal submandibular glands. Tongue base appear s normal. Normal parapharyngeal fat. Normal posterior nasopharynx. No evidence of supraglottic or cely ttic mass. Normal subglottic airway. Normal thyroid gland. Lung apices are well aerated. Paranasal si nuses and mastoid air cells are well aerated. Straightening of the normal cervical lordosis. Moderate spondylitic changes. Mild carotid bulb calcification. CT/CT neck w con* [id number] IMPRESSION: 1. Mild soft tissue induration about the mandible compatible with radiation th erapy. 2. No evidence of metastatic disease.
--- NOTE | 2024-06-08 12:33 | CT_ITS ---
WS: [id number] CT HEAD TECHNIQUE: Noncontrast and contrast-enhanced CT of the head. CLINICAL INFORMATION: MALIGNANT NEOPLASM OF SKIN COMPARISON: CT head 05/05/2023 DLP: 2462.[address] scans at [facility] use at least one of these dose optimization techniques: automated e xposure control; mA and/or kV adjustment per patient size (includes targeted exams where dose is matc hed to clinical indication); or iterative reconstruction. FINDINGS: No evidence of intracranial hemorrhage or mass effect. Moderate small vessel changes with moderate pa renchymal volume loss. Volume loss worse in the frontal lobes. Vascular calcification. Chronic lacuna r infarcts in the RIGHT greater than LEFT basal ganglia. Chronic infarct in the RIGHT parasagittal pa rietal and occipital lobes with encephalomalacia unchanged. Mastoid air cells are well aerated. Partially visualized paranasal sinuses are well aerated. Cavernou s carotid calcification. No abnormal intracranial enhancing lesions. CT/CT head wo/w con [id number] IMPRESSION: 1. No evidence of intracranial hemorrhage or mass effect. 2. Small intracranial enhancing lesions. 3. Moderate small vessel changes with moderate parenchymal volume loss worse i n the frontal lobes. 4. Chronic infarct in the RIGHT parasagittal parietal and occipital lobes with encephalomalacia unchanged from previous.
[2024-06-08] MEDS: iohexol 350 mg/mL 500 mL Btl (per mL) IV (13:51)
[2024-06-08 15:13] LABS: Blood Urea Nitrogen 16 mg/dL (8-23)
== END 2024-06-08 12:28 | disposition home or self-care (01) ==
LOC: RAD 12:27
PROVIDERS: PCP Family Medicine; Visit Provider Dermatology
DX: Z85.828 Personal history of other malignant neoplasm of skin (principal)
CPT/HCPCS: 70470; 70491; 82565; 84520

== ENCOUNTER → 2024-06-21 13:50 | Outpatient (BNVA) | payer MEDICARE, SELFPAY | PROVIDERS: PCP Family Medicine; Visit Provider Internal Medicine Cardiovascular Disease | DX: I48.91 Unspecified atrial fibrillation (principal); Z79.01 Long term (current) use of anticoagulants; I25.5 Ischemic cardiomyopathy; I34.0 Nonrheumatic mitral (valve) insufficiency; I10 Essential (primary) hypertension; Z87.891 Personal history of nicotine dependence | CPT/HCPCS: 99214 ==

== ENCOUNTER 2024-08-05 02:23 | Observation (INO) | payer MEDICARE, SELFPAY ==
[2024-08-05] VITALS (30 sets, daily range): BP systolic 107–147; BP diastolic 74–100; PULSE 79–109; RESP 14–25; TEMP 36.4–36.8; O2SAT 83–95; BMI 29.5; BMI 26.5
--- NOTE | 2024-08-05 02:26 | ECG_ITS ---
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 Measurements Intervals [place] Rate: 85 P: 0 MN: 0 QRS: 9 QRSD: 92 T: -31 QT: 364 QTc: 433 Interpretive Statements ATRIAL FLUTTER WITH ABERRANT CONDUCTION OR VENTRICULAR PREMATURE COMPLEXES INCOMPLETE RIGHT BUNDLE BRANCH BLOCK [90+ ms QRS DURATION, TERMINAL R IN V1/V2, 40+ ms S IN I/aVL/V4/V5/V6] NONSPECIFIC T-WAVE ABNORMALITY Compared to ECG 07/05/2023 22:03:44 Ventricular premature complex(es) now present Aberrant conduction of supraventricular beat(s) now present Incomplete right bundle-branch block now present T-wave abnormality now present Sinus rhythm no longer present Electronically Signed On 08-06-2024 10:37:34 GREY TENDER by Glen Bose M.D. [email or web address]
--- NOTE | 2024-08-05 02:31 | XRR_ITS ---
PROCEDURE INFORMATION: Exam: XR Abdomen Exam date and time: 08/05/2024 2:45 AM Age: 78 years old Clinical indication: Abdominal pain; Generalized; Additional info: Constipation TECHNIQUE: Imaging protocol: Radiologic exam of the abdomen. Views: Frontal supine view of the abdomen. 1 View. COMPARISON: CR (CHEST, ) 05/05/2023 6:37 PM FINDINGS: Lungs: Minimal bibasilar atelectasis Gastrointestinal tract: Dilated loops of gas-filled small bowel in the right abdomen. Gas is present in the stomach. Paucity of gas distal. Bones/joints: Unremarkable. XR/XR KUB portable [id number] IMPRESSION: Dilated loops of gas-filled small bowel in the right abdomen. Gas is present in the stomach. Paucity of gas distal. Findings suspicious for small bowel obstruction. Correlate with clinical signs of obstruction.
--- NOTE | 2024-08-05 02:42 | ED_ITS ---
HPI - Abdominal Pain 2 General: Chief Complaint: Abdominal Pain Stated Complaint: Abd Pain Time Seen by Provider: 08/05/24 02:32 History of Present Illness: Patient presents to the ER with abdominal pain for the last 24 hours. He says he has been not able to urinate for the last 24 hours not had a bowel movement in the last 2 to 3 days. Patient [place] any nausea vomiting fever chills. Related Data Home Medications Medication Instructions Recorded Confirmed haloperidol 2 mg tablet 2.5 mg PO DAILY 08/07/20 06/21/24 saw palmetto 450 mg capsule 450 mg PO DAILY 10/12/20 06/21/24 benztropine 2 mg tablet 2 mg PO DAILY 07/02/21 06/21/24 Previous Rx's Medication Instructions Recorded warfarin 5 mg tablet 5 mg PO DAILY 30 days #30 tabs 05/06/23 losartan 25 mg tablet 25 mg PO DAILY #90 tabs 10/30/23 potassium chloride 8 mEq 8 meq PO DAILY #90 tabs 04/15/24 tablet,extended release atorvastatin 40 mg tablet 40 mg PO BEDTIME #90 tabs 06/08/24 furosemide 20 mg tablet See Rx Instructions .Route 07/20/24 .COMPLEX #180 tabs Allergies Allergy/AdvReac Type Severity Reaction Status Date / Time Penicillins Allergy Unknown Verified 06/21/24 14:11 Review of Systems 2 General: Reports: 10 or more systems reviewed and unremarkable except in HPI and below PFSH ED 2 PFSH: Medical History CVA (cerebral vascular accident) History of therapeutic radiation History of nonmelanoma skin cancer Hypertension Hx of atrial flutter History of hypertension History of 2019 novel coronavirus disease (COVID-19) Hx of schizophrenia Surgical History Hx of cataract extraction Status post right knee replacement Hx of total knee replacement History of tonsillectomy and adenoidectomy Family History Mother Hypertension Father Cancer stomach Brother Lung disease Cancer Denies family history of Diabetes CAD (coronary artery disease) Clotting disorder Dementia Chronic kidney disease (CKD) Suicide Anesthesia complication Bleeding disorder Stroke Social History Smoking and tobacco/nicotine status: former use of tobacco/nicotine Quit status (tobacco/nicotine): has quit using Alcohol intake: former Physical Exam 2 Const: COMMON NORMALS: no acute distress, average body habitus, patient oriented x3, no limitations, healthy appearing, alert and well nourished HENMT: COMMON NORMALS: normocephalic, atraumatic, hearing grossly normal bilaterally, external ears normal, Normal external nose present and moist oral mucous membranes HEAD & SCALP: normocephalic and atraumatic NOSE: Normal external nose present EXTERNAL EAR: Yes external ears normal Neck/C-Spine: COMMON NORMALS: no JVD Chest: COMMONS NORMALS: normal inspection of the chest and normal palpation of entire chest wall Resp: COMMON NORMALS: normal respiratory effort, No retractions, No use of accessory muscles and clear to auscultation bilaterally AUSCULTATION: clear to auscultation bilaterally Cardio: COMMON NORMALS: no JVD, regular rate, regular rhythm, S1 normal heart sound present, S2 normal heart sound present, No gallops present (Cardio), No clicks present (Cardio), No murmurs present (Cardio) and No rub (Cardio) R ATE: regular rate RHYTHM: regular rhythm HEART SOUNDS: S1 normal heart sound present and S2 normal heart sound present GI: COMMON NORMALS: Normal to inspection, nondistended, normoactive bowel sounds present, Soft to palpation, No hepatosplenomegaly present and no masses; negative for non-tender (Mildly tender to palpate suprapubically) PALPATION: Yes Soft to palpation and Yes No hepatosplenomegaly present Neuro: COMMON NORMALS: patient oriented x3 SENSORIUM/ORIENTATION: Yes alert Course 2 Vital Signs: Vital signs: Vital Signs Temperature 98.2 F 08/05/24 02:24 Pulse Rate 87 08/05/24 03:20 Respiratory Rate 18 08/05/24 04:06 Blood Pressure 129/100 08/05/24 03:40 Pulse Oximetry 92 08/05/24 04:06 MDM - Abdominal Pain Medical Decision Making 345, Dr. Barrow notified of CT findings and he will come and examine the patient in the ER. Dr. Barrow came by reduce the hernia and we will admit him to OBS Dr. Barrow. Medical Records I reviewed the patient's medical records. Lab Data I reviewed the patient's lab results. 08/05/24 02:27 08/05/24 02:27 Labs/Radiology: Radiology Impressions KUB X-Ray 08/05/24 02:31 IMPRESSION: Dilated loops of gas-filled small bowel in the right abdomen. Gas is present in the stomach. Paucity of gas distal. Findings suspicious for small bowel obstruction. Correlate with clinical signs of obstruction. Abdomen/Pelvis CT 08/05/24 03:18 IMPRESSION: Dilated fluid-filled loops of proximal and mid small bowel compatible with small bowel obstruction. The transition point is within a right inguinal hernia. ADDENDUM: 08/05/24 0343 Addendum: Bowel obstruction findings discussed with Dr. Geiger at 3:41 a.m. central time on 08/05/2024 Laboratory Results WBC 17.15 10^3/uL (3.29-11.43) H 08/05/24 02:27 RBC 4.74 10^6/uL (3.85-5.65) 08/05/24 02:27 Hgb 14.30 g/dL (11.27-16.99) 08/05/24 02:27 Hct 42.7 % (37-53) 08/05/24 02:27 MCV 90.1 fl (82-101) 08/05/24 02:27 MCH 30.2 pg (27-33) 08/05/24 02:27 MCHC 33.5 g/dL (30-55) 08/05/24 02:27 RDW 14.3 % (12.1-15.1) 08/05/24 02:27 Plt Count 252 10^3/cmm (157-399) 08/05/24 02:27 MPV 11.5 fL (7.4-10.4) H 08/05/24 02:27 Neut % (Auto) 85.3 % 08/05/24 02:27 Lymph % (Auto) 7.6 % 08/05/24 02:27 [place] % (Auto) 6.3 % 08/05/24 02:27 Eos % (Auto) 0.2 % 08/05/24 02:27 Baso % (Auto) 0.2 % 08/05/24 02:27 Neut # (Auto) 14.63 10^3/uL (1.8-7.7) H 08/05/24 02:27 Lymph # (Auto) 1.3 10^3/uL (0.8-4.8) 08/05/24 02:27 [place] # (Auto) 1.1 10^3/uL (0.2-0.9) H 08/05/24 02:27 Eos # (Auto) 0.0 10^3/uL (0.0-0.8) 08/05/24 02:27 Baso # (Auto) 0.0 10^3/uL (0.0-0.1) 08/05/24 02:27 Nucleated RBC % (auto) 0 % 08/05/24 02:27 Nucleated RBCs # 0.0 /100WBC 08/05/24 02:27 Sodium 127 mmol/L (136-145) L 08/05/24 02:27 Potassium 3.4 mmol/L (3.5-5.1) L 08/05/24 02:27 Chloride 85 mmol/L (98-107) L 08/05/24 02:27 Carbon Dioxide 28 mmol/L (22-29) 08/05/24 02:27 Anion Gap 17.4 (5-19) 08/05/24 02:27 BUN 16 mg/dL (8-23) 08/05/24 02:27 Creatinine 1.0 mg/dL (0.7-1.2) 08/05/24 02:27 GFR Calculation Not Reportable 08/05/24 02:27 Glucose 158 mg/dL (65-115) H 08/05/24 02:27 Calculated Osmolality 268 mOsm/kg (285-295) L 08/05/24 02:27 Lactic Acid 2.9 mmol/L (0.5-2.2) H 08/05/24 03:37 Calcium 9.4 mg/dL (8.5-10.5) 08/05/24 02:27 Magnesium 1.9 mg/dL (1.7-2.3) 08/05/24 02:27 Total Bilirubin 1.5 mg/dL (0.15-1.2) H 08/05/24 02:27 Direct Bilirubin 0.40 mg/dL (0.00-0.30) H 08/05/24 02:27 AST 36 U/L (0-40) 08/05/24 02:27 ALT 16 U/L (0-41) 08/05/24 02:27 Alkaline Phosphatase 95 U/L (40-130) 08/05/24 02:27 Total Protein 7.2 g/dL (6.6-8.7) 08/05/24 02:27 Albumin 4.3 g/dL (3.5-5.2) 08/05/24 02:27 Globulin 2.9 g/dL (1.3-4.6) 08/05/24 02:27 Urine Color Yellow (Yellow) 08/05/24 03:16 Urine Appearance Clear (CLEAR) 08/05/24 03:16 Urine pH 6.0 (5-7) 08/05/24 03:16 Ur Specific [place] 1.023 (1.005-1.030) 08/05/24 03:16 Urine Protein Trace (Negative) A 08/05/24 03:16 Urine Glucose (UA) Negative (Normal) 08/05/24 03:16 Urine Ketones Trace (Negative) 08/05/24 03:16 Urine Blood 1+ (Negative) A 08/05/24 03:16 Urine Nitrate Negative (Negative) 08/05/24 03:16 Urine Bilirubin Negative (Negative) 08/05/24 03:16 Urine Urobilinogen 1.0 mg/dL (Negative) 08/05/24 03:16 Ur Leukocyte Esterase Negative (Negative) 08/05/24 03:16 Urine RBC 11-20 /hpf (0-2) H 08/05/24 03:16 Urine WBC 0-5 /hpf (0-5) 08/05/24 03:16 Ur Squamous Epith Cells 0-5 /hpf (0-5) 08/05/24 03:16 Amorphous Sediment Not Reportable 08/05/24 03:16 Urine Bacteria None seen /hpf (NONE) 08/05/24 03:16 Hyaline Casts 2.46 /lpf 08/05/24 03:16 Urine Mucus 2+ /hpf 08/05/24 03:16 All radiology interpretation(s) finalized by discharge Discharge Plan Discharge Patient Disposition: Placed in Observation Clinical Impression: Hernia, inguinal, right, History of small bowel obstruction Coding Level of Care Code ED Traveling Nurse for Yaima Jim
[2024-08-05 02:45] LABS: Basophils % 0.2 %; Eosinophils % 0.2 %; Hematocrit 42.7 % (37-53); Lymphocytes # 1.3 10^3/uL (0.8-4.8); Lymphocytes % 7.6 %; Mean Corpuscular HGB Conc 33.5 g/dL (30-55); Mean Corpuscular Hemoglobin 30.2 pg (27-33); Mean Corpuscular Volume 90.1 fl (82-101); Mean Platelet Volume 11.5 fL (7.4-10.4); Monocytes # 1.1 10^3/uL (0.2-0.9); Monocytes % 6.3 %; Neutrophils # 14.63 10^3/uL (1.8-7.7); Neutrophils % 85.3 %; Nucleated Red Blood Cells % 0 %; Platelet Count 252 10^3/cmm (157-399); Red Blood Count 4.74 10^6/uL (3.85-5.65); Red Cell Distribution Width 14.3 % (12.1-15.1); White Blood Count 17.15 10^3/uL (3.29-11.43)
[2024-08-05 03:01] LABS: Anion Gap 17.4 (5-19); Blood Urea Nitrogen 16 mg/dL (8-23); Calcium 9.4 mg/dL (8.5-10.5); Carbon Dioxide 28 mmol/L (22-29); Chloride 85 mmol/L (98-107); Creatinine Clr Calc Pharmacy 66.6825; Glucose 158 mg/dL (65-115); Osmolality Calculated 268 mOsm/kg (285-295); Potassium 3.4 mmol/L (3.5-5.1); Sodium 127 mmol/L (136-145)
--- NOTE | 2024-08-05 03:18 | CTR_ITS ---
PROCEDURE INFORMATION: Exam: CT Abdomen And Pelvis With Contrast Exam date and time: 08/05/2024 3:28 AM Age: 78 years old Clinical indication: Constipation and nausea and vomiting; Additional info: Abdominal pain, possible small bowel obstruction TECHNIQUE: Imaging protocol: Computed tomography of the abdomen and pelvis with contrast. Radiation optimization: All CT scans at this facility use at least one of these dose optimization techniques: automated exposure control; mA and/or kV adjustment per patient size (includes targeted exams where dose is matched to clinical indication); or iterative reconstruction. Contrast material: OMNI 350; Contrast volume: 100 ml; Contrast route: INTRAVENOUS (IV); COMPARISON: CR (ABDOMEN, ) 08/05/2024 2:45 AM RADIATION DOSE METRICS: Total DLP (mGy-cm): 699.88 FINDINGS: Lungs: Minimal bibasilar atelectasis. Liver: Normal. No mass. Gallbladder and biliary ducts: Normal. No calcified stones. No ductal dilation. Pancreas: Normal. No ductal dilation. Spleen: Normal. No splenomegaly. Adrenal glands: Normal. No mass. Kidneys and ureters: Normal. No hydronephrosis. Stomach and bowel: Dilated fluid-filled loops of proximal and mid small bowel compatible with small bowel obstruction. The transition point is within a right inguinal hernia. Colonic diverticulosis is present without diverticulitis. Appendix: No evidence of appendicitis. Intraperitoneal space: Unremarkable. No free air. No significant fluid collection. Vasculature: Vascular calcification in the aorta and iliac vessels. No aneurysm. Lymph nodes: Unremarkable. No enlarged lymph nodes. Urinary bladder: Unremarkable as visualized. Reproductive: Unremarkable as visualized. Bones/joints: Lumbar spine degenerative changes. No acute fracture. Soft tissues: Left inguinal hernia also contains bowel although no obstructive changes. CT/CT abdomen pelvis w con* [id number] IMPRESSION: Dilated fluid-filled loops of proximal and mid small bowel compatible with small bowel obstruction. The transition point is within a right inguinal hernia.
[2024-08-05 03:22] LABS: Bilirubin Urine Negative (Negative); Blood Urine 1+ (Negative); Glucose Urine UA Negative (Normal); Ketones Urine Trace (Negative); Leukocyte Esterase Urine Negative (Negative); Nitrate Urine Negative (Negative); Protein Urine Trace (Negative); Specific Gravity, Urine 1.023 (1.005-1.030); Urine Appearance Clear (CLEAR); Urine Color Yellow (Yellow)
[2024-08-05 03:27] LABS: Add Urine Microscopic? YES; Bacteria Urine None Seen /hpf; Hyaline Casts Urine 2.46 /lpf; Squamous Epithelial Cell Urine 0-5 /hpf (0-5); WBC Urine 0-5 /hpf (0-5)
[2024-08-05] MEDS: iohexol 350 mg/mL 500 mL Btl (per mL) IV (03:35)
[2024-08-05 03:50] LABS: Alanine Aminotransferase 16 U/L (0-41); Albumin Level 4.3 g/dL (3.5-5.2); Alkaline Phosphatase 95 U/L (40-130); Aspartate Amino Transferase 36 U/L (0-40); Globulin 2.9 g/dL (1.3-4.6); Magnesium 1.9 mg/dL (1.7-2.3); Total Bilirubin 1.5 mg/dL (0.15-1.2); Total Protein 7.2 g/dL (6.6-8.7)
[2024-08-05 03:57] LABS: Lactic Sepsis W/Reflex 2.9 mmol/L (0.5-2.2)
[2024-08-05 04:04] LABS: Add Urine Culture? No; Mucus Urine 2+ /hpf; UA Slide Review UA Slide Review Perf
[2024-08-05] MEDS: fentaNYL 50 mcg/mL INJ 2mL IVP (04:06)
[2024-08-05 04:18] LABS: INR 3.35 (0.8-1.2)
--- NOTE | 2024-08-05 04:28 | P.HP_ITS ---
Providers/Chief Complaint 2 Primary Care Provider: Landon Ga Chief Complaint: Abd Pain History of Present Illness Gwyn Sharif is a 78 year old male who presented with diffuse abdominal pain. Pain started tonight. No nausea, vomiting. Abdomen is soft and benign. He has bilateral inguinal hernias that are soft, right most prominent. Medications/Allergies Home Medications Medication Instructions Recorded Confirmed Last Taken Type haloperidol 2 mg tablet 2.5 mg PO DAILY 08/07/20 06/21/24 03/10/21 History saw palmetto 450 mg capsule 450 mg PO DAILY 10/12/20 06/21/24 03/10/21 History benztropine 2 mg tablet 2 mg PO DAILY 07/02/21 06/21/24 Unknown History warfarin 5 mg tablet 5 mg PO DAILY 30 days #30 tabs 05/06/23 06/21/24 Unknown Rx losartan 25 mg tablet 25 mg PO DAILY #90 tabs 10/30/23 06/21/24 Unknown Rx potassium chloride 8 mEq 8 meq PO DAILY #90 tabs 04/15/24 06/21/24 Unknown Rx tablet,extended release atorvastatin 40 mg tablet 40 mg PO BEDTIME #90 tabs 06/08/24 06/21/24 Unknown Rx furosemide 20 mg tablet See Rx Instructions .Route 07/20/24 Unknown Rx .COMPLEX #180 tabs Allergies Allergy/AdvReac Type Severity Reaction Status Date / Time Penicillins Allergy Unknown Verified 06/21/24 14:11 PFSH Acute 2 PFSH: Medical History CVA (cerebral vascular accident) History of therapeutic radiation History of nonmelanoma skin cancer Hypertension Hx of atrial flutter History of hypertension History of 2019 novel coronavirus disease (COVID-19) Hx of schizophrenia Surgical History Hx of cataract extraction Status post right knee replacement Hx of total knee replacement History of tonsillectomy and adenoidectomy Family History Mother Hypertension Father Cancer stomach Brother Lung disease Cancer Denies family history of Diabetes CAD (coronary artery disease) Clotting disorder Dementia Chronic kidney disease (CKD) Suicide Anesthesia complication Bleeding disorder Stroke Social History Smoking and tobacco/nicotine status: former use of tobacco/nicotine Quit status (tobacco/nicotine): has quit using Alcohol intake: former Vitals/I&O/Wt Last Vital Signs Temp 98.2 F 08/05/24 02:24 Pulse 104 H 08/05/24 04:20 Resp 16 08/05/24 04:20 BP 117/74 08/05/24 04:20 Pulse Ox 92 08/05/24 04:20 Weight last 48 hrs Weight 200 lb Physical Exam 2 Narrative: Heart: RRR Lungs: unlabored breathing Abdomen: soft, NT, mildly distended Right groin: soft inguinal hernia that contains bowel. Reduced at bedside. Left groin: reducible and soft small inguinal hernia Data 08/05/24 02:27 08/05/24 02:27 A&P Assessment and plan (1) Hernia, inguinal, right: Plan 78 yo male who presented with SBO 2/2 right inguinal hernia. Reduced right inguinal hernia at bedside. Will obs and re-examine in a few hours. Attestations 2 Medical Necessity Statement*: serial abdominal exams Coding Level of Care Code 79651 Diagnoses Hernia, inguinal, right K40.90 Time Spent (min) 30
[2024-08-05] MEDS: sodium chloride 0.9% 1,000 ML 30 ML IV (05:08)
[2024-08-05 05:26] LABS: Reflex Lactate Order REFLEX LACTIC ORDERD
--- NOTE | 2024-08-05 08:46 | PC.PHAR ---
i asked twice to be sure but the patient states he does not take warfarin 5mg anymore and there is no other meds in place of that. removed from chart
--- NOTE | 2024-08-05 11:56 | P.PN_ITS ---
Subjective 2 Subjective: No abdominal pain Bilateral inguinal hernias are soft and reducible No obstructive symptoms Patient is hungry Vitals/I&O/Wt Last Vital Signs Temp 98.0 F 08/05/24 08:11 Pulse 100 08/05/24 08:11 Resp 15 08/05/24 08:11 BP 125/79 08/05/24 08:11 Pulse Ox 90 08/05/24 08:11 O2 Del Method Nasal Cannula 08/05/24 08:11 O2 Flow Rate 2 08/05/24 05:18 08/04/24 08/05/24 08/05/24 22:59 06:59 14:59 Intake Total 9.5 / 9.5 Balance 9.5 / 9.5 Weight last 48 hrs Weight 186 lb 6.4 oz Weight 185 lb Weight 200 lb Physical Exam 2 Narrative: Chest: Unlabored breathing room air. No lymphadenopathy. Heart: Regular rate and rhythm. Abdomen: Soft, nontender, nondistended. No masses or lymphadenopathy. Data 08/05/24 02:27 08/05/24 02:27 A&P Assessment and plan (1) Hernia, inguinal, right: Plan 78-year-old male who presented with a right inguinal hernia and CT scan findings consistent with a transition point in the right inguinal hernia. In the ED, the hernia was soft and was reduced at bedside. Patient never developed obstructive symptoms. Today abdomen is benign and hernias are soft and reducible as well. Will give a regular diet and if patient tolerates this well he will be discharged. Will plan for elective right inguinal hernia repair. Follow-up with me in the office Attestations 2 Medical Necessity Statement*: NA Coding Level of Care Code 42302 Diagnoses Hernia, inguinal, right K40.90 Time Spent (min) 30
== END 2024-08-05 15:14 | disposition home or self-care (01) ==
LOC: ER 04:19 → MEDSURG 04:35
PROVIDERS: Admitting Provider Student in an Organized Health Care Education/Training Program; Emergency Provider Emergency Medicine; PCP Family Medicine; Visit Provider Student in an Organized Health Care Education/Training Program
DX: K40.90 Unilateral inguinal hernia, without obstruction or gangrene, not specified as recurrent (principal); Z86.73 Personal history of transient ischemic attack (TIA), and cerebral infarction without residual deficits; I10 Essential (primary) hypertension; Z86.16 Personal history of COVID-19; F20.9 Schizophrenia, unspecified; Z87.891 Personal history of nicotine dependence
CPT/HCPCS: 51701; 51798; 74018; 74177; 80048; 80076; 81001; 83605; 83735; 85025; 85610; 93005; 96374; 99285; G0378; J3010; J7030